=== PATIENT | female | born 1935 | race Caucasian/White ===

== ENCOUNTER 2016-08-22 10:29 | Inpatient (IN) | payer OTHER, MEDICARE ==
[~2016-08-22] VITALS: Ht 162.6 cm; Wt 55.3 kg
--- NOTE | 2016-08-22 11:09 | ED GENERAL ADULT ---
History of Present Illness General Chief Complaint: Fall Stated Complaint: FALL X COUPLE TIMES; NECKPAIN AND L HAND Source: patient Exam Limitations: confusion, poor historian Allergies Coded Allergies: amoxicillin (Intermediate, RASH 08/22/16) Sulfa (Sulfonamide Antibiotics) (SWELLING 08/22/16) erythromycin base (UNKNOWN 08/22/16) Triage Note: PT TO ED WITH FAMILY C/O BACK PAIN. PT HAS BEEN HAVING RECENT FALLS LATELY, UNSURE WHY SHE IS FALLING. PT LIVES WITH HER 98 YEAR OLD MOTHER. WAS SEEN AT [facility] ON [facility], HAD X-RAYS, NO FRACTURES WERE SEEN. PT WITH CONTINUED BACK BRITTON AND MORE FREQUENT FALLS. Triage Nurses Notes Reviewed? yes Onset: unsure - 3 days ago Duration: day(s): (3) Timing: unknown Injury Environment: home Severity: severe No Modifying Factors: none HPI: Patient is a 81-year-old female with history of heart murmur, cataracts hypertension and hyperlipidemia presenting to the emergency department with chief complaint of fall, confusion, weakness. She was brought in by her cousin' s via personal car. She reports that she found her on the bathroom floor this morning. She thinks that she may have fallen on Monday. Patient cannot tell me when she fell. She cannot tell me how she fell. She is unsure if she hit her head. Per family member patient usually takes care of her older 98-year -old mother at home alone. She has been driving without difficulty. She saw her primary care physician on August 16 for a preop evaluation prior to cataract surgery. Patient also reporting that over the past 4-5 days she's noticed weakness and numbness and tingling in the left upper extremity that's been progressive. Denies any trauma besides the fall recently. The fall happened after the onset of the left upper extremity weakness. Patient denying any chest pain or trouble breathing. Patient denying any abdominal pain. Denies any urinary incontinence or retention. (SU TARANGO,TEJA) Vital Signs & Intake/Output Vital Signs & Intake/Output Vital Signs Date Time Temp Pulse Resp B/P Pulse O2 O2 Flow FiO2 Ox Delivery Rate 08/22 1324 98.1 89 16 116/76 99 Room Air 08/22 1149 102 110/72 08/22 1102 76/52 08/22 1046 97.7 113 20 96 Room Air Past History Travel History Traveled to [place] past 21 day No Medical History Any Pertinent Medical History? see below for history Neurological: NONE EENT: NONE Cardiovascular: hypertension, hyperlipidemia Respiratory: NONE Gastrointestinal: NONE Hepatic: NONE Renal: NONE Musculoskeletal: NONE Psychiatric: NONE Endocrine: NONE Blood Disorders: NONE Cancer(s): breast cancer Surgical History Surgical History: none Psychosocial History What is your primary language Mongolian Tobacco Use: Quit >30 days ago ETOH Use: denies use Illicit Drug Use: denies illicit drug use Family History Hx Contributory? No (TEJA NAVARRO) Review of Systems Review of Systems Constitutional: Reports: see HPI, fever, weakness. Comments Review of systems: See HPI, All other systems negative. Constitutional, no chills fever or weight loss HEENT: No visual changes no sore throat no congestion Cardiovascular: No chest pain ,palpitation , orthopnea or ankle swelling Skin, no jaundice no rashes Respiratory: No dyspnea cough sputum or hemoptysis GI: No nausea no vomiting : No dysuria No hematuria Muscle skeletal: Positive neck and back pain Neurologic: Positive weakness, confusion and numbness and tingling Psych: No stress anxiety or depression,. Heme/endocrine: No bruising no bleeding no polyuria or polydipsia Immunology: No splenectomy or history of AIDS (TEJA NAVARRO) Physical Exam Physical Exam General Appearance: lethargic, thin Comments: Thin person who is minimally responsive HEENT: Normal EENT exam, extraocular motion intact, horizontal nystagmus present bilaterally, Pupils equally round and reactive to light and accommodation. Pupils are approximately 3 cm in size bilaterally. Nose is atraumatic. External auditory canal and Tympanic membranes clear. Pharynx normal. No swelling or edema. Neck: Supple, no lymphadenopathy, limited range of motion secondary to pain. Pain to palpation over C5, C6 and C7. No obvious deformity. No crepitus palpated. Back: Tender to palpation along the thoracic spine approximately T2, T3 and T4. Mild tenderness to palpation in the lumbar paraspinal region. Cardiovascular: Regular rate and rhythms , murmur appreciated, normal JVP Respiratory: Chest nontender. No respiratory distress.breath sounds clear to auscultation bilaterally Abdomen: Soft, nontender nondistended, no appreciable organomegaly. Normal bowel sounds. No ascites Extremity: No edema, no calf tenderness to palpation, normal and equal pulses. Profound weakness in all extremities on arrival. Unable to lift or grasp in the upper extremities. Unable to lift or move lower extremities actively. Neuro: Alert oriented x3, motor deficit of all extremities on arrival. Sensation intact in upper and lower extremities. Cranial nerves II through XII grossly intact. Skin: No appreciable rash on exposed skin, skin is warm and dry. Psych: Mood and affect is normal, poor memory Core Measures ACS in differential dx? Yes CVA/TIA Diagnosis: No Severe Sepsis Present: No Septic Shock Present: No (SU TARANGO,TEJA) Progress Differential Diagnoses I considered the following diagnoses in my evaluation of the patient: Rhabdomyolysis, cervical spine fracture, lumbar fracture Diagnostic Imaging: Viewed by Me: CT Scan. Discussed w/RAD: CT Scan. Radiology Impression: ATIENT: JOHANA JEAN-BAPTISTE PRESENT AGE: 81 PATIENT ACCOUNT NO: [id number] : 37 LOCATION: [facility] ORDERING PHYSICIAN: TEJA TARANGO SERVICE DATE: 08/22/16 EXAM TYPE: CAT - CT CERV SPINE WO IV CONTRAST; CT HEAD WO IV CONTRAST EXAMINATION: CT HEAD W/O IV CONTRAST CT CERVICAL SPINE W/O IV CONTRAST CLINICAL INFORMATION: Pain and confusion after fall. COMPARISON: None TECHNIQUE: Head - Contiguous axial imaging of the head was performed from the skull base to the vertex without the administration of intravenous contrast, and axial images reconstructed at 0.625 mm, 2.5 mm and 5 mm slice thickness. Cervical spine - Volumetric, helical CT acquisition of the cervical spine was obtained without contrast; in addition to the standard set of axial images, multiplanar reformatted images were provided in the coronal and sagittal imaging planes. DLP: 922 mGy-cm (total) FINDINGS: HEAD: Atherosclerotic calcification of cavernous carotid arteries. Findings suggestive of chronic, mild microangiopathy. No acute major vascular territorial infarction, hemorrhage, extra-axial fluid collection, focal mass effect or midline shift. Mild atrophy of cerebral hemispheres associated with symmetric prominence of ventricles and sulci. No acute findings within the posterior fossa. The calvarium is intact and the visualized paranasal sinuses, mastoid air cells and middle ear cavities are well aerated. No acute intraorbital pathology. CERVICAL SPINE: The occipital condyles, atlas, axis and atlantoaxial articulation are intact. There is degenerative subarticular spurring at the atlantodens joint. C2-C3 disc space is maintained. There is left-sided facet ankylosis at C2-C3. At C3-C4, there is moderate degenerative disc space narrowing and facet arthropathy with 0.2 cm degenerative anterolisthesis of C3 on C4. The left-sided uncovertebral joint hypertrophy produces moderate foraminal stenosis. At C4-C5, there is facet arthropathy, degenerative disc space narrowing, vacuum disc phenomenon and traction osteophyte formation. There is right-sided unilateral facet dislocation associated with 0.6 cm anterolisthesis of C4 on C5. There is a nondisplaced fracture in the left C5 vertebral body that extends anteroinferiorly into the vertebral body from the region of the uncovertebral joint, and small displaced fragment is seen at the anterosuperior corner of the vertebral body. Mild anterior height loss of the C5 vertebral body. Also, there appears to be a small, nondisplaced fracture of the superior articular process at the left C4-C5 facet. The C4-C5 uncovertebral joint and facet hypertrophy produce at least moderate left-sided foraminal stenosis at this level. At C5-C6 and C6-C7, there is severe degenerative disc space narrowing, vacuum disc phenomenon, endplate sclerosis, endplate cystic changes and osteophyte formation. The uncovertebral joint hypertrophy produces moderate bilateral foraminal stenosis. At C7-T1, there is mild degenerative disc space narrowing, vacuum disc phenomenon and facet arthropathy. There is a nondisplaced fracture of an osteophyte at the anterosuperior corner of T1. T1-T2 disc space is maintained. There is a transverse area of sclerosis from mild compression injury in the superior third of the T2 vertebral body. Also, there is mild concave compression fracture deformity involving the superior endplate of the partially visualized T3 vertebral body. IMPRESSION: 1. No acute intracranial pathology. 2. Multilevel degenerative disc disease, facet arthropathy and uncovertebral joint hypertrophy within the cervical spine. 3. C4 -C5 right-sided unilateral facet dislocation with 0.6 cm anterolisthesis of C4 on C5. A fracture present in the C5 vertebral body which exhibits mild anterior height loss. Also, a nondisplaced fracture is seen in the superior articular process at the left C4-C5 facet joint. 4. Nondisplaced fracture of an osteophyte at the anterosuperior corner of T1. 5. Mild compression injury within the superior third of the T2 vertebral body and mild compression fracture involving the superior endplate of the T3 vertebral body. The critical test result was discussed with Teja Luciano at 11:59 am and it was ascertained that the content and the importance of the findings was understood at the time of the direct communication. DICTATED BY: SIMON HARRINGTON MD DATE/TIME DICTATED:[address] DELIVERER:CRISTOBAL DATE/TIME TRANSCRIBED:08/22/161136 CONFIDENTIAL, DO NOT COPY WITHOUT APPROPRIATE AUTHORIZATION. <Electronically signed in Other Vendor System> SIGNED BY: SIMON HARRINGTON MD 08/22/16 1208 Initial ED EKG: sinus tachycardia (TEJA NAVARRO) Differential Diagnoses I considered the following diagnoses in my evaluation of the patient: Plan of Care: Orders Procedure Date/time Status LACTIC ACID 08/22 1408 Active Patient Data 08/22 1323 Active Add-on Test (ER Only) 08/22 1241 Active Add-on Test (ER Only) 08/22 1233 Active Add-on Test (ER Only) 08/22 1230 Active Singh, Insertion/Removal/Asses 08/22 1227 Active CULTURE,URINE 08/22 1140 Active URINE DRUGS OF ABUSE 08/22 1140 Complete ETHANOL 08/22 1110 Complete DIRECT BILIRUBIN 08/22 1110 Complete Telemetry/Flight Software Test Engineer 08/22 1108 Active BLOOD CULTURE 08/22 1108 Active URINALYSIS 08/22 1108 Complete TROPONIN LEVEL 08/22 1108 Complete LACTIC ACID 08/22 1108 Complete COMPREHENSIVE METABOLIC PANEL 08/22 1108 Complete CREATINE PHOSPHOKINASE 08/22 1108 Complete CBC WITHOUT DIFFERENTIAL 08/22 1108 Complete EKG 08/22 1103 Active Laboratory Tests 08/22/16 1140: Urine Opiates Screen < 100.00, Methadone Screen < 40, Barbiturate Screen < 60, Ur Phencyclidine Scrn < 6.00, Amphetamines Screen < 100, U Benzodiazepines Scrn < 85, Urine Cocaine Screen < 50, Urine Cannabis Screen < 5.00, Urine Color YEL, Urine Clarity HAZY H, Urine pH 6.0, Ur Specific [place] 1.015, Urine Protein 30 H, Urine Ketones TRACE H, Urine Nitrite NEG, Urine Bilirubin NEG@ICTO, Urine Urobilinogen 1.0, Ur Leukocyte Esterase NEG, Ur Microscopic SEDIMENT EXAMINED, Urine RBC 1-3, Urine WBC 3-5 H, Ur Epithelial Cells FEW, Urine Bacteria FEW H, Granular Casts PACKD H, Urine Hemoglobin NEG, Urine Glucose 100 H 08/22/16 1110: Anion Gap 15, Estimated GFR > 60, BUN/Creatinine Ratio 47.5 H, Glucose 189 H, Lactic Acid 5.3 H, Calcium 9.6, Total Bilirubin 2.1 H, Direct Bilirubin 0.3, AST 64 H, ALT 58 H, Alkaline Phosphatase 56, Creatine Kinase 603 H, Troponin I 0.27 *H, Total Protein 6.5, Albumin 3.5, Globulin 3.0, Albumin/Globulin Ratio 1.2, CBC w Diff MAN DIFF ORDERED, RBC 4.28, MCV 93.1, MCH 31.3 H, RDW 13.2, MPV 7.9, Gran % 88.4 H, Lymphocytes % 4.2 L, Monocytes % 7.3, Eosinophils % 0, Basophils % 0.1, Absolute Granulocytes 9.8 H, Absolute Lymphocytes 0.5 L, Absolute Monocytes 0.8 H, Absolute Eosinophils 0, Absolute Basophils 0, Platelet Estimate ADEQUATE, Normocytic RBCs VERIFIED, Normochromic RBCs VERIFIED , PUBS MCHC 33.6, Serum Alcohol < 10.0 Microbiology 08/22 1227 URINE ROUT: Urine Culture - CAN Cancelled: Cancelled via OE: CAN BE ADDED ON 08/22 1140 URINE ROUT: Urine Culture - RECD 08/22 1140 URINE ROUT: Urine Culture - CAN Cancelled: ERROR 08/22 1130 BLOOD: Blood Culture - RECD 08/22 1110 BLOOD: Blood Culture - RECD Comments: 08/22/2016 12:54:06 PM D/W DR MEDINA, who reviewed patient's CT. he AGREES WITH HARD CERVICAL COLLAR AND CONSULT DR OCHOA. He will evaluate the patient himself to as PT WILL NEED ELECTIVE SURGERY PERHAPS LATER. I have notified Dr. Medina of the patient's weakness of the left upper extremity and other pertinent history/physical exam findings. 08/22/2016 1:11:51 PM patient's case discussed with Dr. Chase and Dr. Hernandez. Dr. Hernandez feels the patient can be admitted to telemetry. (ED MCMAHON,VLAD Moore) Departure Departure Time of Disposition: 1330 Condition: Stable Clinical Impression Primary Impression: Cervical spine fracture Qualifiers: Encounter type: initial encounter Cervical vertebra fracture level: C5 Fracture type: closed Fracture morphology: unspecified fracture morphology Fracture alignment: nondisplaced Qualified Code: S12.401A - Unspecified nondisplaced fracture of fifth cervical vertebra, initial encounter for closed fracture Secondary Impressions: Elevated BUN Elevated troponin Rhabdomyolysis Qualifiers: Rhabdomyolysis type: traumatic Encounter type: initial encounter Qualified Code: T79.6XXA - Traumatic ischemia of muscle, initial encounter Referrals: Wendy ULCAS MD (PCP/Family) Departure Forms: Customer Survey General Discharge Information (TEJA NAVARRO) Departure Disposition: STILL A PATIENT Admission Note Spoke With: AUGUSTINA MCMAHON,KYLIE Blanc Documentation of Exam: Documentation of any treatments & extenuating circumstances including Concerns Regarding Discharge (functional status, medication knowledge or non-compliance, living conditions, etc.) that warrant an admission rather than observation: Patient has an elevated troponin level of an unclear etiology. This could represent a recent heart attack or demand ischemia. This places the patient at high risk of dysrhythmia, hypotension, chest pain shortness of breath and syncope. She requires continuous cardiac monitoring and serial troponin determinations along with cardiology consultation. In addition the patient has suffered a fall with a cervical spine fracture that requires a hard cervical collar and consultations with neurosurgery and orthopedic/back surgery. She also has profound weakness of the left upper extremity that compromises her functional capacity, she should also be evaluated by physical therapy. The patient has baseline confusion and this along with the above make her extremely poor candidate for outpatient management. I feel she would not be able to comply with outpatient treatment would likely return in worse clinical condition. Given this patient's advanced age and multiple medical comorbidities her treatment and recovery will likely be prolonged and complicated, requiring a multi-day hospitalization. PA/SWATCH CHECKER Co-Sign Statement Statement: ED Attending supervision documentation- [X] I saw and evaluated the patient. I have also reviewed all the pertinent lab results and diagnostic results. I agree with the findings and the plan of care as documented in the PA's/SWATCH CHECKER's documentation. It appears patient has fallen at some point perhaps today or prior. She is a poor historian and cannot provide substantial details of her injury. She does have a profound weakness of the left upper extremity on examination. She is currently in a cervical collar. [] I have reviewed the ED Record and agree with the PA's/SWATCH CHECKER's documentation. [] Additions or exceptions (if any) to the PAs/SWATCH CHECKER's note and plan are summarized below: [] (ED MCMAHON,VLAD Moore) Critical Care Note Critical Care Note Critical Care Time: 30-74 min (VLAD WARD MD)
[2016-08-22 11:29] LABS: ABSOLUTE BASOPHIL COUNT 0 /CUMM (0.0-0.2); ABSOLUTE EOSINOPHIL COUNT 0 /CUMM (0.0-0.7); ABSOLUTE GRANULOCYTE CT 9.8 /CUMM (1.4-6.5); ABSOLUTE LYMPH COUNT 0.5 /CUMM (1.2-3.4); ABSOLUTE MONOCYTE COUNT 0.8 /CUMM (0.10-0.60); BASOPHIL % 0.1 % (0.0-2.0); EOSINOPHIL % 0 % (0-5); GRANULOCYTE % 88.4 % (42.2-75.2); HEMATOCRIT 39.8 % (37-47); MEAN CORPUSCULAR HGB 31.3 PG (27.0-31.0); MEAN CORPUSCULAR HGB CONC 33.6 G/DL (33.0-37.0); MEAN CORPUSCULAR VOLUME 93.1 FL (81.0-99.0); MEAN PLATELET VOLUME 7.9 FL (7.4-10.4); PLATELET COUNT 222 /CUMM (130-400); RBC DISTRIBUTION WIDTH 13.2 % (11.5-14.5); RED BLOOD CELL CT 4.28 /CUMM (4.20-5.40)
--- NOTE | 2016-08-22 12:08 | CT SCAN REPORT ---
EXAMINATION: CT HEAD W/O IV CONTRAST CT CERVICAL SPINE W/O IV CONTRAST CLINICAL INFORMATION: Pain and confusion after fall. COMPARISON: None TECHNIQUE: Head - Contiguous axial imaging of the head was performed from the skull base to the vertex without the administration of intravenous contrast, and axial images reconstructed at 0.625 mm, 2.5 mm and 5 mm slice thickness. Cervical spine - Volumetric, helical CT acquisition of the cervical spine was obtained without contrast; in addition to the standard set of axial images, multiplanar reformatted images were provided in the coronal and sagittal imaging planes. DLP: 922 mGy-cm (total) FINDINGS: HEAD: Atherosclerotic calcification of cavernous carotid arteries. Findings suggestive of chronic, mild microangiopathy. No acute major vascular territorial infarction, hemorrhage, extra-axial fluid collection, focal mass effect or midline shift. Mild atrophy of cerebral hemispheres associated with symmetric prominence of ventricles and sulci. No acute findings within the posterior fossa. The calvarium is intact and the visualized paranasal sinuses, mastoid air cells and middle ear cavities are well aerated. No acute intraorbital pathology. CERVICAL SPINE: The occipital condyles, atlas, axis and atlantoaxial articulation are intact. There is degenerative subarticular spurring at the atlantodens joint. C2-C3 disc space is maintained. There is left-sided facet ankylosis at C2-C3. At C3-C4, there is moderate degenerative disc space narrowing and facet arthropathy with 0.2 cm degenerative anterolisthesis of C3 on C4. The left-sided uncovertebral joint hypertrophy produces moderate foraminal stenosis. At C4-C5, there is facet arthropathy, degenerative disc space narrowing, vacuum disc phenomenon and traction osteophyte formation. There is right-sided unilateral facet dislocation associated with 0.6 cm anterolisthesis of C4 on C5. There is a nondisplaced fracture in the left C5 vertebral body that extends anteroinferiorly into the vertebral body from the region of the uncovertebral joint, and small displaced fragment is seen at the anterosuperior corner of the vertebral body. Mild anterior height loss of the C5 vertebral body. Also, there appears to be a small, nondisplaced fracture of the superior articular process at the left C4-C5 facet. The C4-C5 uncovertebral joint and facet hypertrophy produce at least moderate left-sided foraminal stenosis at this level. At C5-C6 and C6-C7, there is severe degenerative disc space narrowing, vacuum disc phenomenon, endplate sclerosis, endplate cystic changes and osteophyte formation. The uncovertebral joint hypertrophy produces moderate bilateral foraminal stenosis. At C7-T1, there is mild degenerative disc space narrowing, vacuum disc phenomenon and facet arthropathy. There is a nondisplaced fracture of an osteophyte at the anterosuperior corner of T1. T1-T2 disc space is maintained. There is a transverse area of sclerosis from mild compression injury in the superior third of the T2 vertebral body. Also, there is mild concave compression fracture deformity involving the superior endplate of the partially visualized T3 vertebral body. IMPRESSION: 1. No acute intracranial pathology. 2. Multilevel degenerative disc disease, facet arthropathy and uncovertebral joint hypertrophy within the cervical spine. 3. C4-C5 right-sided unilateral facet dislocation with 0.6 cm anterolisthesis of C4 on C5. A fracture present in the C5 vertebral body which exhibits mild anterior height loss. Also, a nondisplaced fracture is seen in the superior articular process at the left C4-C5 facet joint. 4. Nondisplaced fracture of an osteophyte at the anterosuperior corner of T1. 5. Mild compression injury within the superior third of the T2 vertebral body and mild compression fracture involving the superior endplate of the T3 vertebral body. The critical test result was discussed with Magi Luciano at 11:59 am and it was ascertained that the content and the importance of the findings was understood at the time of the direct communication.
--- NOTE | 2016-08-22 12:13 | RADIOLOGY REPORT ---
EXAMINATION: XR PORTABLE CHEST CLINICAL INFORMATION: Syncope COMPARISON: 05/11/2015 TECHNIQUE: Portable AP view of the chest was obtained. FINDINGS: The lungs are well expanded. No consolidation, edema, or effusion. No pneumothorax. The cardiomediastinal silhouette is unchanged. Mild compression deformities of the T2 and T3 vertebral bodies seen on the prior cervical spine CT are not visualized on this study. IMPRESSION: No acute pulmonary findings.
--- NOTE | 2016-08-22 13:34 | Cons- Cardiology ---
General Information and HPI Consulting Request Date of Consult: 08/22/16 Requested By: Suraj TARANGO Reason for Consult: Fall; Possible LOC; Elevated troponin Source of Information: patient, old records History of Present Illness: Ms De Paz is a 81 yr old woman who was known to be in her usual state of health until a few weeks ago. She has a past medical history of hypertension, hyperlipidemia. She was brought to [facility] with a chief concern of neck pain, left arm weakness, multiple falls 2 weeks. As per the patient, she had multiple falls in the last 2 weeks, resulting injury to knees with no loss of consciousness, seizures or head injury. Reported staying on the floor for longer duration secondary to inability to pull herself up. Last fall was this a.m., unwitnessed, with no head injury. Does not report any lightheadedness or dizziness prior to or after the fall. Attributes weakness in lower extremities that resulted in these falls. Approximately 2 weeks ago, started complaining of weakness and left upper extremity, with inability to pick and shovel man or lift any objects. Reported occassional neck pain, 10/10 severity w/ no radiation. No tingling or numbness sensation, loss of sensation in bilateral upper or lower extremities. No loss of bladder or bowel function. Reports decrease in visual acuity secondary to cataract. Reported occassional chest discomfort, Allergies/Medications Allergies: Coded Allergies: amoxicillin (Intermediate, RASH 08/22/16) Sulfa (Sulfonamide Antibiotics) (SWELLING 08/22/16) erythromycin base (UNKNOWN 08/22/16) Home Med List: Amlodipine Besylate 5 MG TABLET 1 TAB PO DAILY HEART/BP (Reported) Lisinopril 20 MG TABLET 1 TAB PO DAILY HEART/BP (Reported) Current Medications: Current Medications Sig/Gisela Start time Last Medication Dose Route Stop Time Status Admin Ceftriaxone Sodium 1,000 MG ONCE ONE 08/22 1315 DC 08/22 IV 08/22 1316 1324 Ceftriaxone Sodium 0 .STK-MED ONE 08/22 1314 DC .ROUTE Potassium Chloride 10 MEQ ONCE ONE 08/22 1300 DC 08/22 IV 08/22 1301 1324 Sodium Chloride 1,000 ML BOLUS ONE 08/22 1145 AC 08/22 IV 08/22 1344 1149 Sodium Chloride 1,000 ML BOLUS ONE 08/22 1115 DC 08/22 IV 08/22 1214 1120 Past History Travel History Traveled to [place] past 21 day No Medical History Neurological: NONE EENT: NONE Cardiovascular: hypertension, hyperlipidemia Respiratory: NONE Gastrointestinal: NONE Hepatic: NONE Renal: NONE Musculoskeletal: NONE Psychiatric: NONE Endocrine: NONE Blood Disorders: NONE Cancer(s): breast cancer Surgical History Surgical History: 1 Psychosocial History ETOH Use: denies use Illicit Drug Use: denies illicit drug use Exam & Diagnostic Data Vital Signs and I&O Vital Signs Date Time Temp Pulse Resp B/P Pulse O2 O2 Flow FiO2 Ox Delivery Rate 08/22 1324 98.1 89 16 116/76 99 Room Air 08/22 1149 102 110/72 08/22 1102 76/52 08/22 1046 97.7 113 20 96 Room Air Intake & Output 08/22 1600 08/22 0800 08/22 0000 08/21 1600 08/21 0808/21 0000 Intake Total 1000 Output Total Balance 1000 Intake, IV 1000 Patient 122 lb Weight Labs/[place] Results: Laboratory Tests 08/22 08/22 1140 1110 Chemistry Sodium (137 - 145 mmol/L) 139 Potassium (3.5 - 5.1 mmol/L) 3.0 L Chloride (98 - 107 mmol/L) 103 Carbon Dioxide (22 - 30 mmol/L) 21 L Anion Gap (5 - 16) 15 BUN (7 - 17 mg/dL) 38 H Creatinine (0.5 - 1.0 mg/dL) 0.8 Estimated GFR (>60 ml/min) > 60 BUN/Creatinine Ratio (7 - 25 %) 47.5 H Glucose (65 - 99 mg/dL) 189 H Lactic Acid (0.7 - 2.1 mmol/L) 5.3 H Calcium (8.4 - 10.2 mg/dL) 9.6 Total Bilirubin (0.2 - 1.3 mg/dL) 2.1 H Direct Bilirubin (< 0.4 mg/dL) 0.3 AST (14 - 36 U/L) 64 H ALT (9 - 52 U/L) 58 H Alkaline Phosphatase (<127 U/L) 56 Creatine Kinase (30 - 135 U/L) 603 H Troponin I (< 0.11 ng/ml) 0.27 *H Total Protein (6.3 - 8.2 g/dL) 6.5 Albumin (3.5 - 5.0 g/dL) 3.5 Globulin (1.9 - 4.2 gm/dL) 3.0 Albumin/Globulin Ratio (1.1 - 2.2 %) 1.2 Hematology CBC w Diff MAN DIFF ORDERED WBC (4.8 - 10.8 /CUMM) 11.0 H RBC (4.20 - 5.40 /CUMM) 4.28 Hgb (12.0 - 16.0 G/DL) 13.4 Hct (37 - 47 %) 39.8 MCV (81.0 - 99.0 FL) 93.1 MCH (27.0 - 31.0 PG) 31.3 H RDW (11.5 - 14.5 %) 13.2 Plt Count (130 - 400 /CUMM) 222 MPV (7.4 - 10.4 FL) 7.9 Gran % (42.2 - 75.2 %) 88.4 H Lymphocytes % (20.5 - 51.1 %) 4.2 L Monocytes % (1.7 - 9.3 %) 7.3 Eosinophils % (0 - 5 %) 0 Basophils % (0.0 - 2.0 %) 0.1 Absolute Granulocytes (1.4 - 6.5 /CUMM) 9.8 H Absolute Lymphocytes (1.2 - 3.4 /CUMM) 0.5 L Absolute Monocytes (0.10 - 0.60 /CUMM) 0.8 H Absolute Eosinophils (0.0 - 0.7 /CUMM) 0 Absolute Basophils (0.0 - 0.2 /CUMM) 0 Platelet Estimate (ADEQUATE) ADEQUATE Normocytic RBCs VERIFIED Normochromic RBCs VERIFIED PUBS MCHC (33.0 - 37.0 G/DL) 33.6 Toxicology Urine Opiates Screen (>2000 NG/ML) < 100.00 Methadone Screen (>300 NG/ML) < 40 Barbiturate Screen (>200 NG/ML) < 60 Ur Phencyclidine Scrn (>25 NG/ML) < 6.00 Amphetamines Screen (>1000 NG/ML) < 100 U Benzodiazepines Scrn (>200 NG/ML) < 85 Urine Cocaine Screen (>300 NG/ML) < 50 Urine Cannabis Screen (>50 NG/ML) < 5.00 Serum Alcohol (<10 MG/DL) < 10.0 Urines Urine Color (YEL,AMB,STR) YEL Urine Clarity (CLEAR) HAZY H Urine pH (5.0 - 8.0) 6.0 Ur Specific [place] (1.001 - 1.035) 1.015 Urine Protein (NEG,<30 MG/DL) 30 H Urine Ketones (NEG) TRACE H Urine Nitrite (NEG) NEG Urine Bilirubin (NEG) NEG@ICTO Urine Urobilinogen (0.1 - 1.0 EU/dl) 1.0 Ur Leukocyte Esterase (NEG) NEG Ur Microscopic SEDIMENT EXAMINED Urine RBC (0 - 5 /HPF) 1-3 Urine WBC (0 - 2 /HPF) 3-5 H Ur Epithelial Cells (NONE,FEW) FEW Urine Bacteria (NEG/NONE) FEW H Granular Casts (NONE /LPF) PACKD H Urine Hemoglobin (NEG) NEG Urine Glucose (N MG/DL) 100 H Diagnostic Data CXR Results FINDINGS: The lungs are well expanded. No consolidation, edema, or effusion. No pneumothorax. The cardiomediastinal silhouette is unchanged. Mild compression deformities of the T2 and T3 vertebral bodies seen on the prior cervical spine CT are not visualized on this study. IMPRESSION: No acute pulmonary findings. Other Results CT head and C spine: IMPRESSION: 1. No acute intracranial pathology. 2. Multilevel degenerative disc disease, facet arthropathy and uncovertebral joint hypertrophy within the cervical spine. 3. C4-C5 right-sided unilateral facet dislocation with 0.6 cm anterolisthesis of C4 on C5. A fracture present in the C5 vertebral body which exhibits mild anterior height loss. Also, a nondisplaced fracture is seen in the superior articular process at the left C4-C5 facet joint. 4. Nondisplaced fracture of an osteophyte at the anterosuperior corner of T1. 5. Mild compression injury within the superior third of the T2 vertebral body and mild compression fracture involving the superior endplate of the T3 vertebral body. Assessment/Plan Assessment/Plan Assessment: 1. Multiple falls; ? LOC 2. C Spine fracture 3. Elevated troponin - likely related to rhabdo; further evaluation to rule out underlying ischemia 4. Rhabdomyolysis 5. Transaminitis / elevated total bili 6. Hypokalemia 7. History of HTN 8. History of HLD Recommendations: - Telemetry admission. - Echocardiogram - Serial troponins and ECGs - Check orthostatic heart rate and BP qshift x 3 - Check TSH; B12, etc. - Recheck CBC to reassess for elevated WBC - Neurosurgery input pending - Replete potassium and check Mg2+ and replete if necessary Consult Acknowledgment - Thank you for your consult request.
--- NOTE | 2016-08-22 14:54 | History & Physical ---
See Addendum LESLIE CHEN 08/22/16 1453: General Information and HPI MD Statement: I have seen and personally examined JOHANA DE PAZ and documented this H&P. The patient is a 81 year old F who presented with a patient stated chief complaint of Source of Information: patient, old records History of Present Illness: Ms De Paz is a 81 yr old woman who was known to be in her usual state of health until a few weeks ago. She has a past medical history of hypertension, hyperlipidemia. She was brought to [facility] with a chief concern of neck pain, left arm weakness, multiple falls 2 weeks. As per the patient, she had multiple falls in the last 2 weeks, resulting injury to knees with no loss of consciousness, seizures or head injury. Reported staying on the floor for longer duration secondary to inability to pull herself up. Last fall was this a.m., unwitnessed, with no head injury. Does not report any lightheadedness or dizziness prior to or after the fall. Attributes weakness in lower extremities that resulted in these falls. Approximately 2 weeks ago, started complaining of weakness and left upper extremity, with inability to clam picker or lift any objects. Reported occassional neck pain, 10/10 severity w/ no radiation. No tingling or numbness sensation, loss of sensation in bilateral upper or lower extremities. No loss of bladder or bowel function. Reports decrease in visual acuity secondary to cataract. Reported occassional chest discomfort, located in the center of the chest, w/ no radiation and association w/ food intake. No palpitations, no orthopnea, no SOB, no PND. Sees the primary care physician regularly, and was seen by Dr. Watesr a few days ago for a preoperative clearance for cataract surgery. Allergies/Medications Allergies: Coded Allergies: amoxicillin (Intermediate, RASH 08/22/16) Sulfa (Sulfonamide Antibiotics) (SWELLING 08/22/16) erythromycin base (UNKNOWN 08/22/16) Home Med list Amlodipine Besylate 5 MG TABLET 1 TAB PO DAILY HEART/BP (Reported) Lisinopril 20 MG TABLET 1 TAB PO DAILY HEART/BP (Reported) Past History Travel History Traveled to [place] past 21 day No Medical History Neurological: NONE EENT: NONE Cardiovascular: hypertension, hyperlipidemia Respiratory: NONE Gastrointestinal: NONE Hepatic: NONE Renal: NONE Musculoskeletal: NONE Psychiatric: NONE Endocrine: NONE Blood Disorders: NONE Surgical History Surgical History: none Past Family/Social History Family History Relations & Conditions if any FATHER (Diabetes). Psychosocial History ETOH Use: denies use Illicit Drug Use: denies illicit drug use Functional Ability ADLs Independent: dressing, eating, toileting, bathing. Ambulation: independent IADLs Independent: shopping, housework, finances, food prep, telephone, transportation , medication admin. Review of Systems Review of Systems Constitutional: Reports: see HPI. EENTM: Reports: visual changes. Cardiovascular: Reports: chest pain. Respiratory: Denies: cough. GI: Denies: abdominal pain. Genitourinary: Denies: dysuria. Musculoskeletal: Denies: back pain. Skin: Denies: change in skin color. Neurological/Psychological: Denies: anxiety, depressed. Hematologic/Endocrine: Denies: bruising. Exam & Diagnostic Data Last 24 Hrs of Vital Signs/I&O Vital Signs Date Time Temp Pulse Resp B/P Pulse O2 O2 Flow FiO2 Ox Delivery Rate 08/22 1621 98.0 97 18 130/68 99 Room Air 08/22 1324 98.1 89 16 116/76 99 Room Air 08/22 1149 102 110/72 08/22 1102 76/52 08/22 1046 97.7 113 20 96 Room Air Intake & Output 08/22 1600 08/22 0800 08/22 0000 Intake Total 2200 Output Total 30 Balance 2170 Intake, IV 2200 Output, Urine 30 Patient 122 lb Weight Physical Exam General Appearance Alert, Oriented X3, Cooperative, No Acute Distress Skin No Rashes, No Breakdown, erythema b/l knees HEENT Atraumatic, PERRLA, EOMI, horizontal nystagmus Neck No JVD, limited neck examination Lymphatic Cervical nl Cardiovascular Regular Rate, Normal S1, Normal S2 Lungs Clear to Auscultation, Normal Air Movement Abdomen Normal Bowel Sounds, Soft, No Tenderness Neurological Normal Gait, Normal Speech, Normal Tone, Sensation Intact, Reflexes 2+, limited cranial nerve exam left upper extremity 2/5 strenght right upper and lower extremity 5/5 sensatoin intact b/l lower extremities Extremities No Clubbing, No Cyanosis, No Edema, Normal Pulses Vascular Pulses Symmetrical Body Front and Back (Adult) 1) erythema on knees Diagnostic Data CXR Results FINDINGS: The lungs are well expanded. No consolidation, edema, or effusion. No pneumothorax. The cardiomediastinal silhouette is unchanged. Mild compression deformities of the T2 and T3 vertebral bodies seen on the prior cervical spine CT are not visualized on this study. IMPRESSION: No acute pulmonary findings. Other Results CT head and C spine: IMPRESSION: 1. No acute intracranial pathology. 2. Multilevel degenerative disc disease, facet arthropathy and uncovertebral joint hypertrophy within the cervical spine. 3. C4-C5 right-sided unilateral facet dislocation with 0.6 cm anterolisthesis of C4 on C5. A fracture present in the C5 vertebral body which exhibits mild anterior height loss. Also, a nondisplaced fracture is seen in the superior articular process at the left C4-C5 facet joint. 4. Nondisplaced fracture of an osteophyte at the anterosuperior corner of T1. 5. Mild compression injury within the superior third of the T2 vertebral body and mild compression fracture involving the superior endplate of the T3 vertebral body. Assessment/Plan Assessment: Ms De Paz is a 81 yr old woman has a past medical history of hypertension, hyperlipidemia is evaluated for neck pain, left arm weakness, multiple falls 2 weeks. As per the patient's family, she had multiple falls in the last 2 weeks, frequency of which worsened in the last few days. Worsening left arm weakness in the last 2 days. At the time of admission, temperature 97.7, pulse rate 113, blood pressure 110/ 72, 96% on room air. Neurological examination revealed motor weakness on the left upper extremity, with 1+ biceps, brachial radialis and triceps reflexes on the left side. Lab findings indicated leukocytosis WBC 11.0, hemoglobin 13.4, hematocrit 39.8, platelets 222. EKG revealed normal sinus rhythm, no ST-T wave inversions. Electrolytes-sodium 139, potassium 3.0 (replenished), bicarbonate 21, BUN 38, serum creatinine 0.8, glucose 189, lactic acid 5.3 (decreased to 1.1 after fluid resuscitation), magnesium 1.8, total bilirubin 2.1, AST 64, ALT 58, alkaline phosphatase 56, creatinine kinase 603, serial cardiac enzymes-troponin I 0.27--> 0.23. Urine toxicology was negative for opiates and barbiturates. Urinalysis revealed W BC 3-5, urine leukocyte esterase negative, urine nitrite negative. CT head-did not show any acute intracranial pathology. CT cervical spine revealed C4-C5 right-sided unilateral facet dislocation with 0.6 cm anterolisthesis of C4 on C5. A fracture present in the C5 vertebral body which exhibits mild anterior height loss. Also, a nondisplaced fracture is seen in the superior articular process at the left C4-C5 facet joint. MRI was not done. Admission diagnosis: #1 elevated cardiac enzymes #3 cervical myelopathy #4 cervical spine fracture #5 rhabdomyolysis Below is the problem list and plan: #1 elevated cardiac enzymes-likely due to supply demand mismatch type II ME. Serial echocardiogram grams did not reveal any ST-T wave changes. Serial cardiac enzymes trended down. Patient did not have any cardiac symptoms, at the time of admission. Blood pressure was stable. She was to be be monitored on cardiac floor to check for any possible arrhythmias that could have resulted in multiple falls. Team Assembler-Dr. Hernandez was consulted for advice. Echocardiogram. No antiplatelet drugs to be administered at this time, and if found to have any EKG changes, consider aspirin. #2 possible cervical myelopahty-considering the odd presentation of motor symptoms discordant to bony findings alone, a cord compression was considered in the differential. She was continued on neck brace. The patient did not have any neck pain. An MRI could not be done. Dr. Kaden Hale MD , neurosurgeon was consulted for advice. No steroids were administered at this time. #3 abnormal electrolytes and rhabdomyolysis-hypokalemia. Electrolytes replenished appropriately, and was continued on intravenous fluids. #4 hypertension-continued on home dose of lisinopril and amlodipine. #5 DVT prophylaxis- alps As Ranked By This Provider Problem List: 1. Rhabdomyolysis Qualifiers Rhabdomyolysis type: traumatic Encounter type: initial encounter Qualified Code : T79.6XXA - Traumatic ischemia of muscle, initial encounter 2. Elevated BUN 3. Elevated troponin 4. Cervical spine fracture Qualifiers Encounter type: initial encounter Cervical vertebra fracture level: C5 Fracture type: closed Fracture morphology: unspecified fracture morphology Fracture alignment: nondisplaced Qualified Code: S12.401A - Unspecified nondisplaced fracture of fifth cervical vertebra, initial encounter for closed fracture Core Measures/Miscellaneous Acute Coronary Syndrome ACS Diagnosis: No Cerebrovascular Accident CVA/TIA Diagnosis: No Congestive Heart Failure CHF Diagnosis: No Venous Thromboembolism VTE Risk Factors: Acute medical illness, Age > 40 No Mech VTE prophylaxis d/t: No contraindications No VTE Pharm Prophylaxis d/t: No contraindications VTE Diagnosis: No VTE Type: NONE VTE Confirmed by (Test): NONE Severe Sepsis Severe Sepsis Present: No Septic Shock Septic Shock Present: No Miscellaneous Documentation Attending Case Discussed With: KYLIE JACKMAN MD Primary Care Physician: Wendy WATERS MD [facility] Level of Patient Care: Telemetry REED COSME 08/22/166: Resident Review Statement Resident Statement: examined this patient, discussed with fashion buying internship, agreed with fashion buying internship, reviewed EMR data (avail), reviewed images Other Findings: Mrs. De Paz is a 81-year-old female with significant past medical history of hypertension, hyperlipidemia, and bloody nipple discharge [status post bilateral mastectomy, patient states she was never diagnosed with cancer, ?prophylactic mastectomy] who presents to the hospital emergency department for evaluation after a fall. Per the patient, she said that her family [on-call and cousin] suggested that she come to the emergency department after they found that she was slightly altered. She states that she fell this morning and was down for approximately 3 hours. 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 She states that over the last few months she has had multiple falls and usually remains down for quite a while as she has developed left arm weakness as well as left leg paresthesias which are inhibiting her ability to get up in an efficient /timely manner. Upon presentation, vitals were temperature 97.7, heart rate 113, respiratory rate 20, saturating 96% on room air. Physical exam revealed an age-appropriate appearing female lying comfortably in bed in no acute distress with hard cervical collar in place. HEENT exam was negative for any gross signs of trauma however per the ED note she did have midline cervical spine tenderness. Eye exam did show horizontal left-sided nystagmus [rapid phase to the left, slow to the right]. Auscultation of the right carotid artery revealed systolic murmur [ questionable radiation from the heart], the left could not be auscultated due to the c-collar. Heart exam S1-S2 positive with 3/6 systolic murmur, louder at the base of the heart. Posterior lung ervin could not be examined. Abdominal exam benign. Extremity exam significant for left arm 1 out of 5 strength, with diminished furniture manager strength compared to the right. Right arm 3 out of 5 strength. RLE and LLE 4/5 strength. Sensation in tact bilaterally in both upper and lower extremities. Cranial nerves grossly intact, but spinal accessory nerve could not be assessed due to c-collar. Reflexes equal and 2+ bilaterally in upper and lower extremities [radial, bicep, and patellar] EKG showed sinus tachycardia at 101 with CO interval 176, QTC 493. There was left axis deviation approximately -30 a Q wave in V1 and V2. No significant ST elevations were noted. Significant labs hemoglobin/hematocrit within normal limits, white blood cell count 11.0, sodium 139, potassium 3.0, BUNs/creatinine 38/0.8. Glucose 189. Lactic acid 5.3. Troponin I 0.27. Chest x-ray revealed no acute pathology. CT of the head and neck ruled out any intracranial bleed but did reveal facet arthropathy at C4 and C5 with a right facet dislocation with 0.6 cm of anterolisthesis of C4 on C5, as well as C5 compression fracture with anterior height loss, as well as nondisplaced fracture of the superior articular processes of C4, as well as a T1 allegra superior osteophyte fracture as well as a T2 superior mild compression fracture. Problem list/assessment and plan Elevated troponin without significant EKG changes * No chest pain, and without SAKINA, but in light of her troponins, we will admit to telemetry and trend trops w seriel EKGs at 1700 and 2300. Vertebral fractures * Continue c-spine stabilization with a hard collar * neurosurgery and ortho surgery consults placed and appreciated * Most likely she will require an MRI to further elucidate her presentation as she does have bony involvement. MRI would be helpful to evaluate if she does have any spinal involvement or compression. * Spinal compression, please consult the neurosurgery staff and consider IV steroids. * We will also consider consulting interventional radiology tomorrow given her compression fracture for pain relief if cleared by neuro and ortho. Fall versus syncope * ? Unsure if the patient had a mechanical fall versus arrhythmia versus neurogenic syncope, versus neuropathy versus questionable seizure as well. The patient does state that she falls frequently and remembers these episodes or seizure activities less likely however. * We will rule her out for cardiovascular causes with telemetry monitoring as well as an echocardiogram, and bilateral carotid artery ultrasounds. * We will also get B12 and B9 levels - MCV 90+. * If no etiology is found, we will consider an EEG and neuro evaluation Rhabdomyolysis * Most likely secondary to being down for 3 hours, no renal impairment at the moment. * We will trend creatinine kinase as well as her BUN/creatinine. * Patient was given 2 L of normal saline bolus in the emergency department. Hypokalemia * repleted in the ED * We will add on magnesium as if she has hypomagnesemia, repletion of potassium will be inconsequential. * If Mg is WNL, we will replete with another 20meQ and consider PO repletion as well DNR/DNI Heart healthy diet pain pathway as ordered ALPS for now
[2016-08-22] MEDS ORDERED: AMLODIPINE BESYL5 M1 PO (15:15)
[2016-08-22] MEDS ORDERED: LISINOPRIL20 M1 PO (15:15)
--- NOTE | 2016-08-22 15:26 | PN- Student ---
Subjective Subjective: ID: Ms. De Paz is a 81 yo white F w/ a past medical history of HTN, Hyperlipidemia, and breast cancer. CC: Ms. De Paz is being admitted today because of weakness and tingling of LUE, neck and left hand pain, and frequent falls. Source: patient HPI: Ms. De Paz is coming in with complaints of weakness/loss of function of left upper extremity that has worsened over the last 4-5 days. She describes the weakness as constant with no sensory changes. She does not remember exactly when the weakness began but says that it started prior to when she started falling. She states that she started falling around 2-3 weeks ago, with the most recent fall occurring this morning from which she wasnt able to get up. She was found by family on her bathroom floor. She has been using a walker as of late. She does not report and LOC or loss of bladder/bowel control during these falls but does say that she remains on the ground for extended periods of time following them. She says that her legs do not feel the same weakness as her LUE but she says that her feet feel unstable when she stands. She does not report any recent illness however she says that she hasnt felt well recently. She reports not eating well and only consuming cranberry juice. Allergies: sulfonamides, erythromycin, amoxicillin Medication: Reported- Lisinopril 20mg, amlodipine 5mg, Advil (occaisionally) Current Medications Sig/Gisela Start time Last Medication Dose Route Stop Time Status Admin Ceftriaxone Sodium 1,000 MG ONCE ONE 08/22 1315 DC 08/22 IV 08/22 1316 1324 Ceftriaxone Sodium 0 .STK-MED ONE 08/22 1314 DC .ROUTE Potassium Chloride 10 MEQ ONCE ONE 08/22 1300 DC 08/22 IV 08/22 1301 1324 Sodium Chloride 1,000 ML BOLUS ONE 08/22 1145 AC 08/22 IV 08/22 1344 1149 Sodium Chloride 1,000 ML BOLUS ONE 08/22 1115 DC 08/22 IV 08/22 1214 1120 PMH: Ms. De Paz has a past medical history of cataracts, systolic heart murmur, hyperlipidemia, HTN, and breast cancer Surgical hx: bilateral subcutaneous mastectomy to remove breast cancer FH: Father passed from CVD, Cousin had DM SH: Patient stated that she quit smoking 30 years ago. She also stated ETOH use frequency as "now and then". ROS: She stated that she had a 30 lb weight loss 2 years ago that she never regained. She also reported some GI symptoms of constipation at times and episodes of stomach discomfort with no radiation, associated with food intake. Objective Objective: PE: HEENT- No scalp lesions or echimosis, AMY, Horizontal nystagmus noted, Hearing intact, no swelling or echimosis noted on throat, trachea midline, no lymphadenopathy EXT- no swelling or echimosis noted, no pain or tenderness to palpation Neuro- DTRs 2+ in upper extremity and lower extremity bilaterally, babinski negative bilaterally. On strength testing of upper extremity was 4/5 forward flexion on the right 1/5 on the left, steel post installer strength was 4/5 on right and 2/5 on left. Strength of lower extremity was 5/5 bilaterally for straight leg hip flexion. Abdominal- soft to palpation, no guarding, no pain to palpation, murphys negative, liver span normal on percussion CV-S1 and S2 appreciated, systolic murmur noted over aortic area with carotid bruit Lungs- vesicular breath sounds heard throughout all lung ervin, chest rise equal bilaterally Diagnostics: CT: 1. No acute intracranial pathology. 2. Multilevel degenerative disc disease, facet arthropathy and uncovertebral joint hypertrophy within the cervical spine. 3. C4-C5 right-sided unilateral facet dislocation with 0.6 cm anterolisthesis of C4 on C5. A fracture present in the C5 vertebral body which exhibits mild anterior height loss. Also, a nondisplaced fracture is seen in the superior articular process at the left C4-C5 facet joint. 4. Nondisplaced fracture of an osteophyte at the anterosuperior corner of T1. 5. Mild compression injury within the superior third of the T2 vertebral body and mild compression fracture involving the superior endplate of the T3 vertebral body. Results Results: Vital Signs Date Time Temp Pulse Resp B/P Pulse O2 O2 Flow FiO2 Ox Delivery Rate 08/22 1621 98.0 97 18 130/68 99 Room Air 08/22 1324 98.1 89 16 116/76 99 Room Air 08/22 1149 102 110/72 08/22 1102 76/52 08/22 1046 97.7 113 20 96 Room Air Laboratory Tests 08/22/16 1409: Lactic Acid 1.1 08/22/16 1140: Urine Opiates Screen < 100.00, Methadone Screen < 40, Barbiturate Screen < 60, Ur Phencyclidine Scrn < 6.00, Amphetamines Screen < 100, U Benzodiazepines Scrn < 85, Urine Cocaine Screen < 50, Urine Cannabis Screen < 5.00, Urine Color YEL, Urine Clarity HAZY H, Urine pH 6.0, Ur Specific [place] 1.015, Urine Protein 30 H, Urine Ketones TRACE H, Urine Nitrite NEG, Urine Bilirubin NEG@ICTO, Urine Urobilinogen 1.0, Ur Leukocyte Esterase NEG, Ur Microscopic SEDIMENT EXAMINED, Urine RBC 1-3, Urine WBC 3-5 H, Ur Epithelial Cells FEW, Urine Bacteria FEW H, Granular Casts PACKD H, Urine Hemoglobin NEG, Urine Glucose 100 H 08/22/16 1110: Anion Gap 15, Estimated GFR > 60, BUN/Creatinine Ratio 47.5 H, Glucose 189 H, Hemoglobin A1c Pending, Lactic Acid 5.3 H, Calcium 9.6, Total Bilirubin 2.1 H, Direct Bilirubin 0.3, AST 64 H, ALT 58 H, Alkaline Phosphatase 56, Creatine Kinase 603 H, Troponin I 0.27 *H, Total Protein 6.5, Albumin 3.5, Globulin 3.0, Albumin/Globulin Ratio 1.2, CBC w Diff MAN DIFF ORDERED, RBC 4.28, MCV 93.1, MCH 31.3 H, RDW 13.2, MPV 7.9, Gran % 88.4 H, Lymphocytes % 4.2 L, Monocytes % 7.3, Eosinophils % 0, Basophils % 0.1, Absolute Granulocytes 9.8 H, Absolute Lymphocytes 0.5 L, Absolute Monocytes 0.8 H, Absolute Eosinophils 0, Absolute Basophils 0, Platelet Estimate ADEQUATE, Normocytic RBCs VERIFIED, Normochromic RBCs VERIFIED, PUBS MCHC 33.6, Serum Alcohol < 10.0 Microbiology 08/22 1227 URINE ROUT: Urine Culture - CAN Cancelled: Cancelled via OE: CAN BE ADDED ON 08/23 1139 URINE ROUT: Urine Culture - RECD 08/23 1139 URINE ROUT: Urine Culture - CAN Cancelled: ERROR 08/22 113 BLOOD: Blood Culture - RECD 08/22 1109 BLOOD: Blood Culture - RECD Assessment/Plan Assessment: Ms. De Paz is a 81 yo W F with a history of breast cancer, HTN, and Hyperlipidemia who is being admitted for LUE weakness, neck and L hand pain, and recurrent falls. Upon reviewing the CT scan results it was noted that she has multiple fractures of the spine which may be causing the weakness and neck pain, secondary to nerve impingement. On physical exam there was note of a systolic heart murmur possibly aortic stenosis with a carotid bruit. She also is having recurrent falls which may be due to near syncopal episodes from and undiagnosed vascular issue or possibly a vitamin deficiency. Problem List: 1. Cervical fractures 2. LUE weakness 3. Heart murmur 4. Recurrent falls 5. Nutrition 6. elevated BUN 7. Elevated troponins Plan: Problem List: 1. Spinal fractures- Consult with Ortho to assess the best way to proceed. Order MRI to look for any soft tissue disturbances that may be present. 2. LUE weakness- MRI to look for nerve impingement 3. Heart Murmur- Echo to assess for aortic stenosis 4. Recurrent falls- B12, B9 labs to assess for any possible neurological causes 5. Nutrition- educate patient on the importance of diet in maintaining appropriate electrolyte balance and vitamin intake. 6. elevated BUN- hydrate and replenish electrolytes 7. Elevated troponins-resolved Order EKG, Echo, labs, and rehydrate/replenish electrolytes acutely for patient. Reassess patient with lab and diagnostic reports as they are available.
--- NOTE | 2016-08-22 16:42 | Admission Certification ---
Admission Certification Certification Statement - As attending physician, I certify that at the time of - admission, based on clinical presentation, severity of - symptoms, need for further diagnostic testing and - therapeutic interventions, and risk of adverse outcomes - without in-hospital treatment, in my clinical assessment, - this patient requires an acute hospital stay for a minimum - of two nights or longer. I have also considered psychsocial - factors such as support system, advanced age, financial - issues, cognitive issues, and failed out-patient treatments, - past re-admission history, safety of patient, and lack of - compliance as applicable. Specific rationale supporting this admission is: elevated troponins and cervical spine fracture secondary to fall
--- NOTE | 2016-08-22 17:00 | PN- Att Addend ---
Attending MD Review Statement Attending Statement Attending MD Statement: examined this patient, discuss w/resident/PA/WEB SITE PROJECT MANAGER, agreed w/resident/PA/WEB SITE PROJECT MANAGER, reviewed EMR data (avail), discussed w/nursing Attending Assessment/Plan: Laboratory Tests 08/22/16 1409: Lactic Acid 1.1 08/22/16 1140: Urine Opiates Screen < 100.00, Methadone Screen < 40, Barbiturate Screen < 60, Ur Phencyclidine Scrn < 6.00, Amphetamines Screen < 100, U Benzodiazepines Scrn < 85, Urine Cocaine Screen < 50, Urine Cannabis Screen < 5.00, Urine Color YEL, Urine Clarity HAZY H, Urine pH 6.0, Ur Specific [place] 1.015, Urine Protein 30 H, Urine Ketones TRACE H, Urine Nitrite NEG, Urine Bilirubin NEG@ICTO, Urine Urobilinogen 1.0, Ur Leukocyte Esterase NEG, Ur Microscopic SEDIMENT EXAMINED, Urine RBC 1-3, Urine WBC 3-5 H, Ur Epithelial Cells FEW, Urine Bacteria FEW H, Granular Casts PACKD H, Urine Hemoglobin NEG, Urine Glucose 100 H 08/22/16 1110: Anion Gap 15, Estimated GFR > 60, BUN/Creatinine Ratio 47.5 H, Glucose 189 H, Hemoglobin A1c 5.3, Lactic Acid 5.3 H, Calcium 9.6, Total Bilirubin 2.1 H, Direct Bilirubin 0.3, AST 64 H, ALT 58 H, Alkaline Phosphatase 56, Creatine Kinase 603 H, Troponin I 0.27 *H, Total Protein 6.5, Albumin 3.5, Globulin 3.0, Albumin/Globulin Ratio 1.2, CBC w Diff MAN DIFF ORDERED, RBC 4.28, MCV 93.1, MCH 31.3 H, RDW 13.2, MPV 7.9, Gran % 88.4 H, Lymphocytes % 4.2 L, Monocytes % 7.3, Eosinophils % 0, Basophils % 0.1, Absolute Granulocytes 9.8 H, Absolute Lymphocytes 0.5 L, Absolute Monocytes 0.8 H, Absolute Eosinophils 0, Absolute Basophils 0, Platelet Estimate ADEQUATE, Normocytic RBCs VERIFIED, Normochromic RBCs VERIFIED, PUBS MCHC 33.6, Serum Alcohol < 10.0 Vital Signs Date Time Temp Pulse Resp B/P Pulse O2 O2 Flow FiO2 Ox Delivery Rate 08/22 1621 98.0 97 18 130/68 99 Room Air 08/22 1324 98.1 89 16 116/76 99 Room Air 08/22 1149 102 110/72 08/22 1102 76/52 08/22 1046 97.7 113 20 96 Room Air 81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 Patient says she has had multiple falls over the last few weeks and the last fall was this morning when she was unable to get up. Patient's family brought her to the hospital because of the above reason. Patient also says she has not been eating for the last 2 days anything and just drinking cranberry juice. Patient also takes Motrin for pain control once or twice a week. She denies any chest pain or any history of heart disease in the past. In ER patient was found to have on CT scan of cervical spine - "C4-C5 right-sided unilateral facet dislocation with 0.6 cm anterolisthesis of C4 on C5. A fracture present in the C5 vertebral body which exhibits mild anterior height loss. Also, a nondisplaced fracture is seen in the superior articular process at the left C4-C5 facet joint. Nondisplaced fracture of an osteophyte at the anterosuperior corner of T1. Mild compression injury within the superior third of the T2 vertebral body and mild compression fracture involving the superior endplate of the T3 vertebral body." She was also found to have troponin of 0.27 and acute kidney injury with BUN of 38 and creatinine of 0.8. She was also found to have high lactic acid of 5.3 and leukocytosis with white count of 11,000. On examination she has left arm weakness with the power of about 3/5 on the left upper extremity. Emergency room physician discussed with neurosurgery and they recommended hard cervical collar for the patient. No acute surgical intervention at this time. We will do serial troponins and admit her to telemetry. We will also give her IV fluids and monitor her renal functions. We will also repeat her lactic acid level. Patient does not appear to be septic and the increase in lactic acid could have been secondary to severe dehydration and possibly hypertension which would have led her to fall. Discussed with patient the care plan. Patient does not want any resuscitation. Also encouraged patient to have a living will and a healthcare proxy. Patient currently does not have those.
--- NOTE | 2016-08-22 17:53 | Cons- Neurosurgical ---
General Information and HPI Consulting Request Date of Consult: 08/22/16 Requested By: KYLIE JACKMAN MD Reason for Consult: Cervical spine injury Source of Information: patient, old records Exam Limitations: poor historian History of Present Illness: 81-year-old right-handed woman who was brought to the hospital today for a concern of neck pain left arm weakness multiple falls for 2 weeks apparently fell today or yesterday. The patient is an exceedingly poor historian and there is an element of confusion and any of her descriptions Apparently 2 weeks ago without any trauma she woke up with a feeling of a left arm she has been since that date only able to shrug her shoulder on the left and not use it she feels that this has this balanced her and let her to falling on a few occasions. It is possible that one of these occasions she was lying for a long period of time given that she isn't rhabdomyolysis On examination confirmed with the fact that she has been moving her right arm she seems to be indifference to have finding and is unable to say what that actually started She is not presently complaining of any neck pain she is not complaining of any radicular pain in her arms She denies any dizziness prior to or after the fall she denies any loss of sensation she denies any bowel or bladder dysfunction Allergies/Medications Allergies: Coded Allergies: amoxicillin (Intermediate, RASH 08/22/16) Sulfa (Sulfonamide Antibiotics) (SWELLING 08/22/16) erythromycin base (UNKNOWN 08/22/16) Home Med List: Amlodipine Besylate 5 MG TABLET 1 TAB PO DAILY HEART/BP (Reported) Lisinopril 20 MG TABLET 1 TAB PO DAILY HEART/BP (Reported) Current Medications: Current Medications Sig/Gisela Start time Last Medication Dose Route Stop Time Status Admin Ceftriaxone Sodium 1,000 MG ONCE ONE 08/22 1315 DC 08/22 IV 08/22 1316 1324 Ceftriaxone Sodium 0 .STK-MED ONE 08/22 1314 DC .ROUTE Potassium Chloride 10 MEQ ONCE ONE 08/22 1300 DC 08/22 IV 08/22 1301 1324 Sodium Chloride 1,000 ML BOLUS ONE 08/22 1145 DC 08/22 IV 08/22 1344 1149 Sodium Chloride 1,000 ML BOLUS ONE 08/22 1115 DC 08/22 IV 08/22 1214 1120 Past History Medical History Type of Reaction: Anaphylaxis (unknown) Neurological: NONE, see H&P EENT: NONE Cardiovascular: hypertension, hyperlipidemia Respiratory: NONE Gastrointestinal: NONE Hepatic: NONE Renal: NONE Musculoskeletal: NONE Psychiatric: NONE Endocrine: NONE Blood Disorders: NONE Cancer(s): NONE UROLOGY TEACHER/Reproductive: NONE Other Medical Hx: Has occasionally reported chest discomfort Was being cleared for cataract surgery Surgical History Pertinent Surgical History: none, 1 Family History Relations & Conditions If Any: FATHER (Diabetes). Psychosocial History Where Do You Live? Home Who Do You Live With? self Services at Home: None Primary Language: Palauan Smoking Status: Unknown If Ever Smoked ETOH Use: denies use Illicit Drug Use: denies illicit drug use Living Will? unknown Power of Take Out Waitress/HCP? unknown Name of POA/HCP: unknown Other Social History: Her mother is 98 and lives close by to her Functional Ability ADLs Independent: dressing, eating, toileting, bathing. Ambulation: independent IADLs Independent: shopping, housework, finances, food prep, telephone, transportation , medication admin. Employment History Employment: Retired Profession/Employer: uncertain Retired? yes Review of Systems Review of Systems: Denies any radicular pain. Denies any bowel or bladder dysfunction Review of Systems Constitutional: Denies: no symptoms. EENTM: Denies: see HPI. Cardiovascular: Denies: see HPI. Respiratory: Denies: see HPI. GI: Denies: see HPI. Genitourinary: Denies: see HPI. Musculoskeletal: Reports: see HPI. Skin: Denies: no symptoms. Neurological/Psychological: Reports: see HPI. Hematologic/Endocrine: Denies: see HPI. Immunologic/Allergic: Denies: see HPI. All Other Systems: Reviewed and Negative Exam & Diagnostic Data Vital Signs and I&O Vital Signs Date Time Temp Pulse Resp B/P Pulse O2 O2 Flow FiO2 Ox Delivery Rate 08/22 1621 98.0 97 18 130/68 99 Room Air 08/22 1324 98.1 89 16 116/76 99 Room Air 08/22 1149 102 110/72 08/22 1102 76/52 08/22 1046 97.7 113 20 96 Room Air Intake & Output 08/22 1600 08/22 0800 08/22 0000 08/21 1600 08/21 0800 08/21 0000 Intake Total 2200 Output Total 30 Balance 2170 Intake, IV 2200 Output, Urine 30 Patient 122 lb Weight Physical Exam: Awake alert and oriented. Somewhat vague on some answers. Cranial nerve symmetrical Nontender to palpation of her neck but is kept in the collar due to the x-ray findings. 5 deltoids bilaterally 3 over 5 biceps on the right thigh on the left 5 brachioradialis bilateral to 5 left wrist extension 3 over 5 right wrist extension 4 minus out of 5 right hand grasp to 3 over 5 left hand grasp. Sensory examination to touch within normal limits. Absent biceps brachioradialis and triceps reflexes. No increased finger flexors and no Steve reflexes. No sensory level on the thorax. 4+ over 5 strength both lower extremities. Areflexic at knee and ankle and toes are downgoing. No nystagmus and no dysmetria testing is obviously enlarged by her weakness Physical Exam General Appearance: thin Head: atraumatic Eyes: Bilateral: normal appearance. Ears, Nose, Throat: normal ENT inspection Neck: wearing her collar. Definite tenderness to palpation. Some spasm and paraspinous muscles Respiratory: normal breath sounds Cardiovascular: regular rate/rhythm Breasts Breast appear nl (deferred to primary care) Peripheral Pulses: 2+ carotid (R), 2+ carotid (L) Gastrointestinal: soft Rectal: deferred Back: no vertebral tenderness Extremities: normal inspection Neurologic/Psych: awake, alert, motor weakness Cranial Nerves: normal hearing Reflexes: 0: bicep (R), bicep (L), tricep (L), tricep (L), ankle (R), ankle (L). 1+: knee (R), knee (L). Skin: intact Lymphatic: no anterior cervical tricia Reproductive: Normal female genitalia (deferred) Pelvic: deferred Other Physical Findings: Toes downgoing Last 24 Hours of Labs: Laboratory Tests 08/22 08/22 08/22 1704 1409 1140 Chemistry Lactic Acid (0.7 - 2.1 mmol/L) 1.1 Magnesium (1.6 - 2.3 mg/dL) Pending Creatine Kinase (30 - 135 U/L) 490 H Troponin I (< 0.11 ng/ml) Pending Vitamin B12 (239 - 931 pg/mL) Pending Folate (2.76 - 20.0 ng/mL) Pending TSH (0.270 - 4.200 uIU/mL) Pending Free T4 (0.78 - 2.44 ng/dL) Pending Toxicology Urine Opiates Screen (>2000 NG/ML) < 100.00 Methadone Screen (>300 NG/ML) < 40 Barbiturate Screen (>200 NG/ML) < 60 Ur Phencyclidine Scrn (>25 NG/ML) < 6.00 Amphetamines Screen (>1000 NG/ML) < 100 U Benzodiazepines Scrn (>200 NG/ML) < 85 Urine Cocaine Screen (>300 NG/ML) < 50 Urine Cannabis Screen (>50 NG/ML) < 5.00 Urines Urine Color (YEL,AMB,STR) YEL Urine Clarity (CLEAR) HAZY H Urine pH (5.0 - 8.0) 6.0 Ur Specific [place] (1.001 - 1.035) 1.015 Urine Protein (NEG,<30 MG/DL) 30 H Urine Ketones (NEG) TRACE H Urine Nitrite (NEG) NEG Urine Bilirubin (NEG) NEG@ICTO Urine Urobilinogen (0.1 - 1.0 EU/dl) 1.0 Ur Leukocyte Esterase (NEG) NEG Ur Microscopic SEDIMENT EXAMINED Urine RBC (0 - 5 /HPF) 1-3 Urine WBC (0 - 2 /HPF) 3-5 H Ur Epithelial Cells (NONE,FEW) FEW Urine Bacteria (NEG/NONE) FEW H Granular Casts (NONE /LPF) PACKD H Urine Hemoglobin (NEG) NEG Urine Glucose (N MG/DL) 100 H 08/22 1110 Chemistry Sodium (137 - 145 mmol/L) 139 Potassium (3.5 - 5.1 mmol/L) 3.0 L Chloride (98 - 107 mmol/L) 103 Carbon Dioxide (22 - 30 mmol/L) 21 L Anion Gap (5 - 16) 15 BUN (7 - 17 mg/dL) 38 H Creatinine (0.5 - 1.0 mg/dL) 0.8 Estimated GFR (>60 ml/min) > 60 BUN/Creatinine Ratio (7 - 25 %) 47.5 H Glucose (65 - 99 mg/dL) 189 H Hemoglobin A1c (4.2 - 5.8 %) 5.3 Lactic Acid (0.7 - 2.1 mmol/L) 5.3 H Calcium (8.4 - 10.2 mg/dL) 9.6 Total Bilirubin (0.2 - 1.3 mg/dL) 2.1 H Direct Bilirubin (< 0.4 mg/dL) 0.3 AST (14 - 36 U/L) 64 H ALT (9 - 52 U/L) 58 H Alkaline Phosphatase (<127 U/L) 56 Creatine Kinase (30 - 135 U/L) 603 H Troponin I (< 0.11 ng/ml) 0.27 *H Total Protein (6.3 - 8.2 g/dL) 6.5 Albumin (3.5 - 5.0 g/dL) 3.5 Globulin (1.9 - 4.2 gm/dL) 3.0 Albumin/Globulin Ratio (1.1 - 2.2 %) 1.2 Hematology CBC w Diff MAN DIFF ORDERED WBC (4.8 - 10.8 /CUMM) 11.0 H RBC (4.20 - 5.40 /CUMM) 4.28 Hgb (12.0 - 16.0 G/DL) 13.4 Hct (37 - 47 %) 39.8 MCV (81.0 - 99.0 FL) 93.1 MCH (27.0 - 31.0 PG) 31.3 H RDW (11.5 - 14.5 %) 13.2 Plt Count (130 - 400 /CUMM) 222 MPV (7.4 - 10.4 FL) 7.9 Gran % (42.2 - 75.2 %) 88.4 H Lymphocytes % (20.5 - 51.1 %) 4.2 L Monocytes % (1.7 - 9.3 %) 7.3 Eosinophils % (0 - 5 %) 0 Basophils % (0.0 - 2.0 %) 0.1 Absolute Granulocytes (1.4 - 6.5 /CUMM) 9.8 H Absolute Lymphocytes (1.2 - 3.4 /CUMM) 0.5 L Absolute Monocytes (0.10 - 0.60 /CUMM) 0.8 H Absolute Eosinophils (0.0 - 0.7 /CUMM) 0 Absolute Basophils (0.0 - 0.2 /CUMM) 0 Platelet Estimate (ADEQUATE) ADEQUATE Normocytic RBCs VERIFIED Normochromic RBCs VERIFIED PUBS MCHC (33.0 - 37.0 G/DL) 33.6 Toxicology Serum Alcohol (<10 MG/DL) < 10.0 Imaging Results: CAT scan demonstrates a right-sided C4-C5 facet dislocation with perched facet with a 0.6 cm anterolisthesis of C4-C5. There is a fracture in the C5 vertebral body which exhibits mild anterior height loss. There is a nondisplaced fracture in the superior articular process in the left C4 5 facet joint. Nondisplaced fracture of osteophytes at the anterior superior corner of T1 Mild compression injury and the superior third of the T2 vertebral body and T3 vertebral body Other Results: High troponins. Evidence of rhabdomyolysis. Assessment/Plan Assessment/Plan This is a very odd presentation for situation. Her history is somewhat at odds with her findings. The cervical findings appear acute however her history goes back some any point in time to 10 days ago. She appears to have a belle indifference to her findings which are worse than what she is describing Certainly her bony findings alone do not explain her bilateral polyuria radiculopathies/neuropathies She is going to require an MRI with and without contrast at all possible but without contrast is necessary, under sedation since she is significantly claustrophobic, to determine if any disc pathology or intraspinal pathology are present I've taken the liberty of discussing this case with Eitan Valenzuela MD Problem List: 1. Cervical spine fracture 2. Elevated troponin 3. Elevated BUN 4. Rhabdomyolysis Other Findings/Comments: Despite we will warrant probably a full incomplete evaluation by medical neurology as well Copies To: AUGUSTINA MCMAHON,KYLIE Blanc; DON MCMAHON,EITAN Felix. Consult Acknowledgment - Thank you for your consult request. Attending MD Review Statement Attending Statement Attending MD Statement: reviewed images Attending Assessment/Plan: See my note above
--- NOTE | 2016-08-22 19:44 | Patient Discharge Instructions ---
Discharge Instructions General Discharge Information You were seen/treated for: - Weakness in left upper extremity - Cervical neck fractures. Watch for these problems: #1 loss of sensation in bilateral upper and lower extreme is. #2 loss of bowel/bladder function. Special Instructions: #1 please follow up with her primary care doctor within 1-2 weeks of discharge. #2 please follow up with her neurologist within 1-2 weeks of discharge. #3 please follow up with her neurosurgeon within 1-2 weeks of discharge. #4 please follow with the orthopedic surgeon within 1-2 weeks of discharge. #5 please take her medications as prescribed. Acute Coronary Syndrome Inclusion Criteria At DC or during hospital stay patient has or had the following: ACS DIAGNOSIS No Discharge Core Measures Meds if any: Prescribed or Continued at Discharge Meds if any: NOT Prescribed or Continued at Discharge Congestive Heart Failure Inclusion Criteria At DC or during hospital stay patient has or had the following: CHF DIAGNOSIS No Discharge Core Measures Meds if any: Prescribed or Continued at Discharge Meds if any: NOT Prescribed or Continued at Discharge Cerebrovascular accident Inclusion Criteria At DC or during hospital stay patient has or had the following: CVA/TIA Diagnosis No Discharge Core Measures Meds if any: Prescribed or Continued at Discharge Meds if any: NOT Prescribed or Continued at Discharge Venous thromboembolism Inclusion Criteria VTE Diagnosis No VTE Type NONE VTE Confirmed by (Test) NONE Discharge Core Measures - Per Current guidelines, there needs to be overlap - treatment for the first 5 days of Warfarin therapy. - If discharged on Warfarin prior to 5 days of - overlap therapy, the patient will need to be - assessed for post discharge needs including - *Post discharge parental anticoagulation - *Warfarin and/or parental anticoagulation education - *Follow up date to check INR post discharge At least 5 days overlap therapy as Inpatient No Meds if any: Prescribed or Continued at Discharge Note: Overlap Therapy is Warfarin and Anticoagulant Meds if any: NOT Prescribed or Continued at Discharge
--- NOTE | 2016-08-22 20:09 | Discharge Summary ---
Visit Information Visit Dates Admission Date: 08/22/16 Discharge Date: 08/22/16 Hospital Course Course Attending Physician: AUGUSTINA MCMAHON,KYLIE Blanc Primary Care Physician: SHAYY MCMAHON,CristinSydenham Hospital Course: Ms De Paz is a 81 yr old woman who was known to be in her usual state of health until a few weeks ago. She has a past medical history of hypertension, hyperlipidemia. She was brought to [facility] with a chief concern of neck pain, left arm weakness, multiple falls 2 weeks. As per the patient and the family, she had multiple falls in the last 2 weeks, frequency of which worsened in the last few days. Worsening left arm weakness in the last 2 days. At the time of admission, temperature 97.7, pulse rate 113, blood pressure 110/ 72, 96% on room air. Neurological examination revealed motor weakness on the left upper extremity, with 1+ biceps, brachial radialis and triceps reflexes on the left side. Lab findings indicated leukocytosis WBC 11.0, hemoglobin 13.4, hematocrit 39.8, platelets 222. EKG revealed normal sinus rhythm, no ST-T wave inversions. Electrolytes-sodium 139, potassium 3.0 (replenished), bicarbonate 21, BUN 38, serum creatinine 0.8, glucose 189, lactic acid 5.3 (decreased to 1.1 after fluid resuscitation), magnesium 1.8, total bilirubin 2.1, AST 64, ALT 58, alkaline phosphatase 56, creatinine kinase 603, serial cardiac enzymes-troponin I 0.27--> 0.23. Urine toxicology was negative for opiates and barbiturates. Urinalysis revealed W BC 3-5, urine leukocyte esterase negative, urine nitrite negative. CT head-did not show any acute intracranial pathology. CT cervical spine revealed C4-C5 right-sided unilateral facet dislocation with 0.6 cm anterolisthesis of C4 on C5. A fracture present in the C5 vertebral body which exhibits mild anterior height loss. Also, a nondisplaced fracture is seen in the superior articular process at the left C4-C5 facet joint. MRI was not done. Admission diagnosis: #1 elevated cardiac enzymes #3 cervical neural cord compression #4 cervical spine fracture #5 rhabdomyolysis Below is the problem list and plan: #1 elevated cardiac enzymes-likely due to supply demand mismatch type II DC. Serial echocardiogram grams did not reveal any ST-T wave changes. Serial cardiac enzymes trended down. Patient did not have any cardiac symptoms, at the time of admission. Blood pressure was stable. From a cardiac standpoint, a pharmacological stress test would be ideal prior to any surgical intervention. She was to be continued to be monitored on cardiac floor to check for any possible arrhythmias that could have resulted in multiple falls. [employer] Control Room Operator- Dr. Hernandez was consulted for advice. Echocardiogram could not be done in the ER. No antiplatelet drugs were administered. #2 possible cervical cord compression-considering the acuity of presentation, and odd presentation of motor symptoms discordant to bony findings alone, a cord compression was considered in the differential. She was continued on neck brace. The patient did not have any neck pain. An MRI could not be done. Dr. Kaden Hale MD , neurosurgeon was consulted for advice. No steroids were administered at this time. #3 abnormal electrolytes and rhabdomyolysis-hypokalemia. Electrolytes replenished appropriately, and was continued on intravenous fluids. #4 hypertension-continued on home dose of lisinopril and amlodipine. #5 patient's family-Maddison [phone] (home), Marek [phone] (cousin), Anupama [phone], Bruce Arroyo [phone], (cousin), are to be contacted in case of emergency. As per Ramírez Valenzuela MD, the patient was to be transferred to [facility] for specialized care. Allergies: Coded Allergies: amoxicillin (Intermediate, RASH 08/22/16) Sulfa (Sulfonamide Antibiotics) (SWELLING 08/22/16) erythromycin base (UNKNOWN 08/22/16) Pertinent Lab Results: CAT - CT CERV SPINE WO IV CONTRAST; CT HEAD WO IV CONTRAST : 08/22/16-1108 Head - Contiguous axial imaging of the head was performed from the skull base to the vertex without the administration of intravenous contrast, and axial images reconstructed at 0.625 mm, 2.5 mm and 5 mm slice thickness. Cervical spine - Volumetric, helical CT acquisition of the cervical spine was obtained without contrast; in addition to the standard set of axial images, multiplanar reformatted images were provided in the coronal and sagittal imaging planes. DLP: 922 mGy-cm (total) FINDINGS: HEAD: Atherosclerotic calcification of cavernous carotid arteries. Findings suggestive of chronic, mild microangiopathy. No acute major vascular territorial infarction, hemorrhage, extra-axial fluid collection, focal mass effect or midline shift. Mild atrophy of cerebral hemispheres associated with symmetric prominence of ventricles and sulci. No acute findings within the posterior fossa. The calvarium is intact and the visualized paranasal sinuses, mastoid air cells and middle ear cavities are well aerated. No acute intraorbital pathology. CERVICAL SPINE: The occipital condyles, atlas, axis and atlantoaxial articulation are intact. There is degenerative subarticular spurring at the atlantodens joint. C2-C3 disc space is maintained. There is left-sided facet ankylosis at C2-C3. At C3-C4, there is moderate degenerative disc space narrowing and facet arthropathy with 0.2 cm degenerative anterolisthesis of C3 on C4. The left-sided uncovertebral joint hypertrophy produces moderate foraminal stenosis. At C4-C5, there is facet arthropathy, degenerative disc space narrowing, vacuum disc phenomenon and traction osteophyte formation. There is right-sided unilateral facet dislocation associated with 0.6 cm anterolisthesis of C4 on C5. There is a nondisplaced fracture in the left C5 vertebral body that extends anteroinferiorly into the vertebral body from the region of the uncovertebral joint, and small displaced fragment is seen at the anterosuperior corner of the vertebral body. Mild anterior height loss of the C5 vertebral body. Also, there appears to be a small, nondisplaced fracture of the superior articular process at the left C4-C5 facet. The C4-C5 uncovertebral joint and facet hypertrophy produce at least moderate left-sided foraminal stenosis at this level. At C5-C6 and C6-C7, there is severe degenerative disc space narrowing, vacuum disc phenomenon, endplate sclerosis, endplate cystic changes and osteophyte formation. The uncovertebral joint hypertrophy produces moderate bilateral foraminal stenosis. At C7-T1, there is mild degenerative disc space narrowing, vacuum disc phenomenon and facet arthropathy. There is a nondisplaced fracture of an osteophyte at the anterosuperior corner of T1. T1-T2 disc space is maintained. There is a transverse area of sclerosis from mild compression injury in the superior third of the T2 vertebral body. Also, there is mild concave compression fracture deformity involving the superior endplate of the partially visualized T3 vertebral body. IMPRESSION: 1. No acute intracranial pathology. 2. Multilevel degenerative disc disease, facet arthropathy and uncovertebral joint hypertrophy within the cervical spine. 3. C4-C5 right-sided unilateral facet dislocation with 0.6 cm anterolisthesis of C4 on C5. A fracture present in the C5 vertebral body which exhibits mild anterior height loss. Also, a nondisplaced fracture is seen in the superior articular process at the left C4-C5 facet joint. 4. Nondisplaced fracture of an osteophyte at the anterosuperior corner of T1. 5. Mild compression injury within the superior third of the T2 vertebral body and mild compression fracture involving the superior endplate of the T3 vertebral body. --------- RAD - XRY-PORTABLE CHEST XRAY The lungs are well expanded. No consolidation, edema, or effusion. No pneumothorax. The cardiomediastinal silhouette is unchanged. Mild compression deformities of the T2 and T3 vertebral bodies seen on the prior cervical spine CT are not visualized on this study. IMPRESSION: No acute pulmonary findings. Disposition Summary Disposition Principal Diagnosis: Elevated cardiac enzymes Additional Diagnosis: Rhabdomyolysis Discharge Disposition: home or self care Discharge Instructions General Discharge Information Code Status: Full Code Patient's Diet: Nothing by mouth Patient's Activity: Immobilization Follow-Up Instructions/Appts: Please follow-up with your neurologist/neurosurgeon/orthopedic surgeon. Medications at Discharge Discharge Medications: Continue taking these medications: Lisinopril (Lisinopril) 20 MG TABLET 1 Tablet ORAL DAILY Amlodipine Besylate (Amlodipine Besylate) 5 MG TABLET 1 Tablet ORAL DAILY Copies To: SHAYY MCMAHON,Wendy MCLAIN Attending MD Review Statement Documenting Attending: DENNIS MCMAHON,MARY
[2016-08-22 20:30] VITALS: BP 134/73
--- NOTE | 2016-08-23 08:30 | Cons- Orthopedic ---
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 Orthopaedic spine surgical consultation evaluation was requested by Kaden Hale M.D. (Neurosurgery consultation service) after he was consulted by the emergency department attending to evaluate the patient for the CT finding of unlateral perched facet in the face of reported isolated left upper extremity weakness which was difficult to assess by the emergency department staff at the time of initial consultation due to the patient's lethargy presumably related to rhabdomyolysis. The orthopaedic surgeon on general orthopaedic call was initially contacted per protocol and he agreed that subspecialty spine consultation would be most appropriate in this case. The initially documented patient-provided history was quite different than the final elucidated history which did not become available until late on the day of presentation as detailed below. The patient initially reported a much more chronic two week duration of progressively worsening left upper extremity weakness and ambulatory difficulty following a fall which she reported as having been somewhere between 2 weeks and a month ago with more recently associated increasing difficulty in independent function and frequent falls over the past week or more. This initial information was evidently provided by the patient before her family (several cousins and [id number]) arrived to clarify the history at which point several discrepencies, inconsistencies and uncertainties were revealed. This new history did not become available to the consulting surgeons until they saw the patient in the emergency department at the end of the day. Those evaluations also revealed her bilateral upper extremity weakness and clinical evidence of bilateral multiradicular and spinal cord involvement. Ultimately, it was determined that the patient's direct history was likely inaccurate however this was not clear until late on the day of presentation and after orthopaedic spine consultation history had been obtained by phone from the patient's [id number] Anupama who in turn contacted other family members to confirm observations and details of events over this past weekend which suggested that the patient's functional deficit was much more subacute than had initially been reported. At that point it became clear that the patient was confused with most of her provided history having actually occurred but being very inaccurate and a few components of her history not having actually occurred and possibly representing delusions without evidence of psychosis. As the history became more clear, possible etiologies for her confusion were also revealed including closed head injury, metabolic abnormalities associated with trauma and prolonged immobilization resulting in moderate rhabdomyolysis, occult alcohol use, previously diagnosed mild dementia and other potential contributing factors. The evolution of the patient's neurologic involvement is still unclear but it appears that she was fully functional last (although possibly with some baseline ambulatory and balance difficulty which she was previously adequately accommodating to) when one of her cousins reported that she had driven her car to go shopping and had unloaded groceries independently prior to him observing her ambulating and using all extremities normally. At some point on Monday a family member called and got no answer which was unusual but not rare. On Monday another family member called and got no answer but the two did not communicate about this until Monday when this duration of lack of communication became concerning. The family members went to her residence on Monday and found her on the floor in the bathroom. The patient cares for her blind 98 year old mother who was trying to help her get up when the family arrived and was not sure how long she had been down. The overall presentation would be most consistent with a fall at some point during the evening on Monday but could have been as early as Monday or as late as Monday. She was reportedly lucid and complained of only mild neck pain but was uncertain how long she had been down. This initial fall appears to be the most likely event to have caused her cervical spine injury and there was some evidence of mild posterior cranial contusion which would be consistent with her cervical fracture dislocation. Initially the patient had reported a significant fall several weeks to a month ago but the family was not aware of any such fall. By family member recollection she was unable to pull with the left arm when they tried to get her off the floor and she had to be lifted to the standing position but once on her feet she was able to stand and support herself with her legs and balance by pushing with both arms on family members providing support on either side. The family was not sure whether she was able to pull with the right arm and could not recall whether there was any shoulder weakness. They seemed to remember that both hands were functioning with certified medical biller. In retrospect they recall her having difficulty reaching when they tried to assist her off the floor but could not be certain if this difficulty involved only the left arm or both arms. She refused to have family call emergency services and was helped to bed. They checked on her later that afternoon and again found her on the floor. The patient insisted that she had lowered herself down and the family did not see any evidence of new injury or change in her condition by their report. She again refused transport to the hospital and was assisted back to bed. The family checked on her early the following morning and she again found on the floor next to her bed. The family did not recall any change in her motor function compared to when they initially found her on the bathroom floor 24 hours prior. They continued to note left upper extremity weakness but were uncertain if there was any right sided involvement over the period that they observed her at home. They did recall that she was able to grasp with both hands and bear weight well enough to ambulate with assistance throughout that time period. They did not report any loss of consciousness, suggestion of seizure activity, incontinence or other abnormalities during this period. They felt that she may have been somewhat confused and hypersomnolent but not severely so and because she seemed cognitively normal they honored her insistence not to be taken to the hospital until she continued to have difficulty into Monday. The patient again reported that she had lowered herself down from bed but this time the family noted some signs of impact to both hands, wrists and knees. She still refused ambulance transport but did agree to be taken by car to [facility] at her families insistence. She was stable on arrival to [facility] Emergency Department and was able to provide initial (albeit inaccurate) history. Initial examination reported to the first consulted service was of isolated left arm weakness but was evidently limited as the patient became increasingly lethargic. She required fluid rescusitation and responded over a few hours to the point that a more detailed assessment could be performed. Based on the emergency department report the patient had multiple extremity weakness on that secondary assessment much later in the day once she was less lethargic. The neurosurgical and orthopaedic spine surgical consultants were first made aware of the patient's bilateral upper extremity weakness when they arrived to perform consultation evaluations late in the afternoon. The patient felt that her bilateral weakness had been present for several days or more but her history is unreliable. In retrospect, the family felt that her condition was unchanged since they found her on Monday and did not recall her being able to raise either arm for reaching during the day that they were observing her at home (although this history is not definitive). The consultation evaluations were within one hour of one another and both documented similar deficits with no definitive prior examination documenting better prior function to suggest an evolving deficit or other acutely progressive process. Similarly, the patient's suspended sensory level and more subtle subcervical left hemibody sensory and motor deficits agree between the two remediation bioanalytics consultant examinations, appear to have been stable since presentation (and probably since her initial fall) and were without prior documentation of higher level function to suggest a progressing neurological process. Once the patient was sufficiently awake at the time of consultation evaluations, her spinal cord involvement could be specifically documented and correlated with the history provided by the family. At that point it became evident that more urgent additional radiologic studies would be necessary as the new available history suggested that her deficits were subacute (likely 36-72 hours old) rather than chronic (weeks old) as had initially been reported by the patient. Cervical MRI was recommended as the best study to provide the necessary information for operative planning, however this study was not available at [facility] on an urgent basis at the time of request and so [facility] tertiary care transfer arrangements will be made on an urgent basis. The patient denies any prior history of severe and incapacitating neck pain and has never had any prior radiating arm pain, numbness, weakness, dyscoordination or dysfunction. She does report prior history of activity related and activity- limiting lower back pain but no associated ambulatory difficulty or falls. No prior history of severe or even significant cervical, cranial or other trauma was reported. No prior radiographs are available for comparison. She reports her last oral intake early this morning around breakfast time and that was minimal. She has been NPO and in a rigid cervical collar since arrival to the emergency department. The patient has a significant past medical history of hypertension, hyperlipidemia, heart murmur and cataracts which is detailed in the emergency department and other consultation records. She reports no other significant past medical history pertinent to her current orthopaedic spine surgical management. There may be a diagnosis of early dementia by her primary care physician (Dr. Waters) but those records are not available for review presently. If this diagnosis has been made, it appears that this is being observed for now and is not requiring any specific treatment. She reports no significant past surgical history pertinent to her current orthopaedic spine surgical management. She denies any complications, adverse events or outcomes associated with procedures, tests or interventions. Her current and active medications include Amlodipine and Lisinopril. She denies any adverse effects from either of these medications. She reports a history of non-anaphylactic allergic reactions to Amoxicillin (rash), Sulfa medications (swelling without respiratory change) and Erythromycin base (uncertain reaction) but no other anaphylactic, anaphylactoid or allergic reactions or sensitivities to medications, foods or skin contact environmental allergens. She denies any other non-allergic reactions or sensitivities. She is a non-smoker but does report drinking a half bottle (~300 cc by her report) of Congac most nights. She admits to keeping this from her family who were unaware of this history. According to the family history, which provides limited detail but appears to be more accurate than the patient's somewhat confused account, she had been normally and independently functional until her fall and was last observed by family to have normal upper extremity function as of last . She cares for her elderly mother and has been the primary caregiver for quite some time now without difficulty. She has family (cousins) who check on them both and will be arranging for full-time care for her mother whiile she is in the hospital. Allergies/Medications Allergies: Coded Allergies: amoxicillin (Intermediate, RASH 08/22/16) Sulfa (Sulfonamide Antibiotics) (SWELLING 08/22/16) erythromycin base (UNKNOWN 08/22/16) Home Med List: Amlodipine Besylate 5 MG TABLET 1 TAB PO DAILY HEART/BP (Reported) Lisinopril 20 MG TABLET 1 TAB PO DAILY HEART/BP (Reported) Past History Medical History Type of Reaction: Anaphylaxis (unknown) Neurological: NONE, see H&P EENT: NONE Cardiovascular: hypertension, hyperlipidemia Respiratory: NONE Gastrointestinal: NONE Hepatic: NONE Renal: NONE Musculoskeletal: NONE Psychiatric: NONE Endocrine: NONE Blood Disorders: NONE Cancer(s): NONE 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 Psychosocial History Where Do You Live? Home Who Do You Live With? self Services at Home: None Primary Language: Albanian Smoking Status: Unknown If Ever Smoked ETOH Use: denies use Illicit Drug Use: denies illicit drug use Living Will? unknown Power of Painter And Decorator/HCP? unknown Name of POA/HCP: unknown Other Social History: Her mother is 98 and lives close by to her Functional Ability ADLs Independent: dressing, eating, toileting, bathing. Ambulation: independent IADLs Independent: shopping, housework, finances, food prep, telephone, transportation , medication admin. Employment History Employment: Retired Profession/Employer: uncertain Retired? yes Review of Systems Review of Systems: Secondary review of symptoms and history related to all major bodily systems did not reveal any new information compared to the history detailed above or similar review documented in the emergency department and other consultation records. Refer to those documents for specific review of systems information. Exam & Diagnostic Data Vital Signs and I&O AVSS. No vital sign changes or instabilities were reported or noted during the consultation assessment. Physical Exam: The patient was observed to be resting comfortably in the supine position with her neck stabilized in the neutral position by a well-fitted emergency medical services rigid cervical collar. She was fairly lucid but did have continued evidence of memory lapse, poor recollection of timing of her injury and even some delay in identifying the president and the day of the week (although year, month, hospital name and other information was fairly rapidly recalled). Her history was still unreliable although she did not seem to have some of the delusional reporting that was documented earlier regarding prior falls. She still had confusion regarding the duration of her symptoms and deficits insisting that her left arm weakness had been present for weeks, not clearly connecting her left arm weakness to a fall and uncertain when her right arm became a problem. She did seem to correct her history when her family's report of events were related to her saying "that sounds right" but even when she was told that her family member (cousin) saw her functioning normally on she felt that her left arm weakness had been present before that. She was not hypersomnolent or photophobic and did not have any other significant signs of closed head injury. The front of the rigid cervical collar was unfastened and opened while maintaining the support and stability of the posterior section throughout the cervical spinal examination. The cervical region was circumferentially inspected and palpated whiile maintaining the supported neutral alignment of the neck using the posterior section of the cervical collar as well as manual stabilization. There were no lacerations, lesions or significant ecchymotic areas noted. There was no noticeable tenderness to palpation in the anterior or bilateral cervical regions and only moderate midcervical midline posterior tenderness in the region of the fracture dislocation correlating with the radiologic findings. This tenderness was focal and isolated to the midline and paramedian structures without extension into the posterolateral paraspinal muscular regions. The area of midline tenderness was associated with a subtle widening and lateral deviation at the tender interspinous segment correlating well with the radiologic level (C4-C5) of perched facet. An area of midline softening in the interspinous segment is palpable in this thin patient suggesting a possible ligamentous disruption but there is not an obvious defect and so a severe sprain versus triston tear cannot be determined definitively on current examination. There was no suboccipital, occipital or other cranial tenderness except for a small contusion associated with moderate but not severe tenderness at the most posterior prominence of the occiput consistent with direct impact in this region and her most likely mechanism of cervical spinal injury (intermediate energy forced flexion mechanism probably combined with lesser posterior distractive component). There was no cervicothoracic junction region tenderness. There was no trapezial, clavicular, lateral shoulder, upper thoracic, thoracic paraspinal, periscapular or scapular tenderness on either side and no visual signs of injury in any of these areas. There were no radiating symptoms or muscular spasms reported or appreciated on examination associated with the tenderness on palpation. Due to the known cervical spine injury and potential instability, cervical motion was not tested even through low arc. Once visual and palpation examinations were complete the anterior section of the cervical collar was reapplied and optimal stabilization was confirmed with symmetrical and circumferential support from inferior contact points (sternum, bilateral clavicle and trapezius, bilateral upper scapula and upper thoracic midline) to the superior contact points (mandibular, mastoid and suboccipital) providing complete immobilization. No cutaneous irritation was noted at any of the contact points. Bilateral upper extremity visual examination noted limited spontaneous motion of either shoulder or upper arm but normal spontaneous hand motion. No gross atrophic changes, spasticity or faciculations were appreciated. There were no lacerations, cutaneous or other soft tissue lesions or ecchymotic areas appreciated except for mild findings suggestive of low-energgy impact to the volar hands and posterior elbows consistent with falls, likely with limited protection from impact, as described in her history. To command the patient was very limited in flexion or abduction of either shoulder as well as flexion of either elbow even isolated only against gravity. Detailed neurological examination is described below. On bilateral upper extrmity neurovascular examination the patient had significant motor and sensory deficit with left greater than right severity but fairly symmetrical pattern primarily in the C5 and C6 radicular distribution consistent with a central cord syndrome at that spinal cord level. Shoulder shrug was only minimally and symmetrically weak at 4+/5 and most of this appeared to be give-way weakness due to neck pain. Her shoulder abduction, shoulder flexion and external rotation strength were 2+/5 on the right and only 1/5 on the left. Biceps and wrist extension were 3-/5 on the right and 2/5 on the left. Triceps was considerably stronger at 5-/5 on the right and 4/5 on the left. Wrist flexion and finger extension were intermediate in strength at 4/5 on the right and 3/5 on the left. Finger abduction was weak at 3+/5 on the right and 3/5 on the left. Counter Waiter strength was fairly strong (similar to triceps) at 5-/5 on the right and 4/5 on the left. On lower extremity motor examination she had diffuse normal power on the right at 5/5 and diffuse moderate strength deficit on the left at 4/5. Her sensory examination showed light touch and pinprick loss of sensation ( hypoesthesia estimated by the patient to be 50% of normal sensory magnitude on the right and 25% on the left) without significant paresthesia or dysesthesia reported in the shoulder region (from the mid-trapezial level over the lateral shoulder, posteriorly to the midscapular level and anteriorly just below the clavicle) extending down the lateral upper arm and to the dorsolateral mid- forearm bilaterally. Sensation to light touch as well as dull and sharp discrimination testing was otherwise normal on the right above the mid-trapezial level and below the medial arm and clavicular level. Similar testing on the left showed normal sensation above C5 but diffuse mild hemibody sensory decrease to all modalities tested (approximately 75% of normal) below the more dense bilateral suspended sensory level described above. There was normal gluteal and sacral region sensation with no report or sign of incontinence. Rectal examination was deferred. Reflexes were hypoactive (1+/4) throughout with no abnormal, hyperreflexic, disinhibited or primitive reflexes detected and negative Hoffmans, Babinski (no response) and clonus responses bilaterally. The overall minimal reflex responses in the absence of any evidence of either spinal cord release signs or spinal shock suggests that this reflex examination represents her normal reflex response profile and is unchanged from baseline however this cannot be determined definitively. 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 On comprehensive general trauma examination, the patient was in no acute distress and there were no lacerations, abrasions, ecchymotic areas or deformities noted on full body superficial survey visual and palpation examination. This portion of the examination was performed in the supine position and, where necessary for posterior examination, using log-roll technique with the cervical spine continuously immobilized in the cervical collar and with the head and neck supported. Her posterior, superior and lateral cranial examination is described above. Her anterior craniofacial examination was unremarkable without cutaneous findings, tenderness or crepitus to palpation. Her ears, nose and throat were normal to gross examination with no sign of hemorrhage, deformity or trauma. Her vocalizations were normal and her respirations were unobstructed. Her anterior neck was normal without swelling or tracheal deviation. Carotid pulses were normal with no jugulovenous distention evident. Clavicles, acromioclavicular joints and shoulder girdles were nontender and without deformity or suggestion of fracture, separation or dislocation. The upper extremities showed significant neurological deficit and limitiation of active motion as described above. Otherwise both upper extremities were musculoskeletally normal to visual, palpation and passive motion examination in all regions without evidence of soft tissue, articular or osseous injury. Upper extremity peripheral pulses were normal with good capillary refill and no clubbing or other obvious abnormality. The immobilized cervical, cervicothoracic and upper thoracic spine examination is described in detail above. The remaining thoracic region and the lumbar spinal examination was normal without midline visualized or palpable evidence of trauma or deformity and without midline, paraspinal, posterolateral, flank or costovertebral angle tenderness. The sacral and sacroiliac joint regions were nontender and normal otherwise to visual and palpation examination. The chest wall was nontender and without deformity. Lung ervin were clear to auscultation and both inspiratory and expiratory effort were normal. Oxygenation was normal by pulse oximetry monitoring. Cardiac examination revealed a regular rate and rhythm with no murmur or other abnormal auscultation. The abdomen was benign with active bowel sounds and no abnormal vascular sounds to auscultation. There was no abdominal tenderness to palpation in any region or quadrant, no rebound and no palpable hepatosplenomegaly or mass. The pelvis was nontender and stable to moderate distractive and compressive pressure applied at the iliac margins. The bilateral lower extremity neurological examination is described in detail above. With the exception of the mild but consistent left hemibody motor and sensory deficit described above, the lower extremity neurolovascular and musculoskeletal examination was normal to visual, palpation and passive motion examination in all regions without evidence of soft tissue, articular or osseous injury. Lower extremity peripheral pulses were normal with good capillary refill and no other obvious abnormality. Last 24 Hours of Labs: See emergency department lab summary. Her emergency department initial laboratory studies showed primary findings of elevated troponin I (0.27), creatinine kinase (603), serum (189) and urine (100) glucose, AST (64), ALT (58) and total bilirubin (2.1). Other abnormalities of lesser significance included mildly elevated urine protein (30), ketones (trace) , WBC (3-5) and bacteria (few). There was no evidence of anemia and her mild leukocytosis, granulocytosis, monocytosis and lymphocytopenia on CBC are mostly consistent with demargination and stress reaction due to trauma and prolonged immobilization. The remainder of her laboratory studies were unremarkable and noncontributory to her consultation assessment. Tox screen was negative for alcohol, medications or other substances which might contribute to the patent's moderately confused mental state. Imaging Results: The patient's cranial CT reportedly showed no acute intracranial pathology. I would agree with the radiology reading of the cervical spine CT scan which was described as showing a right C4-C5 unilateral facet dislocation and which, by my reading using spine surgical terms and definitions, would best be described as a unilateral perched and impacted facet with fairly stable overall configuration. This is associated with a mildly compressed C5 anterior vertebral body fracture extending obliquely through the left side of the vertebral body and exiting through the upper posterior endplate on that side (without displacement or retropulsion) and a nondisplaced C4 superior articular process fracture. There is only mild central canal spondylotic encroahment or other narrowing. The only significant canal narrowing is in the right lateral recess where there is mild to moderate narrowing secondary to unilateral anterolisthesis and concomitant projection of the intact right superior posterior corner of the C5 vertebral body into the canal relative to the anterior subluxed C4 laminar resulting in approximately 50% "pincer effect" in the right canal at that level consistent with the patient's physical examination findings. She appears to have had a mid -Grade I spondylolisthesis at the C4-C5 level even before this injury (based on the anterolisthesis evident even on her non-subluxed left side) which is increased to Grade II on the right due to the perched facet. The patient has diffuse and (at several levels) fairly severe degenerative and vacuum disk changes, facet arthropathy and uncovertebral joint hypertrophy with bilateral foraminal stenosis There are also nondisplaced fractures reported of an osteophyte at the anterosuperior corner of T1 as well as mild compression fractures involving the superior third of the T2 and the superior endplate of the T3 vertebral bodies without retropulsion or encroachment. 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 Several minimally or nondisplaced fractures at that same and other cervical and thoracic levels were noted on CT scan however the primary level of injury and level requiring spine surgical treatment is the C4-C5 level. The patient's medical issues have now been stabilized sufficient for transfer and likely sufficient for any surgical intervention that she will require. The original presentation and history suggested that her deficit was more chronic (based on history from the patient which turned out to be inaccurate due to her dementia). Her more acute history as well as her bilateral involvement suggesting spinal cord rather than nerve root involvement did not become evident until neurosurgery and orthopaedic spine consultation evaluations were performed during the late afternoon after the patient had recovered from an episode of instability and poor responsiveness (related to metabolic issues, rhabdomyolysis , dehydration and other potential causes including closed head injury and mild baseline dementia) which began shortly following initial presentation to the [facility] Emergency Department and made assessment difficult during that period. More detailed history from the patient's family obtained by phone contact later in the day following subspecialty consultations revealed that the timeline of deficit was more subacute. The patient's spinal injury likely occurred some time between Monday and Monday. Her deficits were likely stable since Monday with dense left upper extremity and some ambulatory deficit being reported. The right upper extremity deficit was not as clearly documented by the family. The patient refused to come to the emergency room until this morning which was at least 24 hours (and possibly more) following her injury and onset of severe motor deficit. There has been no evidence of evolving spinal cord neurological process since emergency department presentation however detailed evaluation has been limited due to the patient's other issues. The family did not feel that the patient's condition had significantly changed since they intially found her on Monday after her first reported fall. Once the subacute nature of her injury with spinal cord involvement and bilateral deficits became evident, more urgent additional radiologic studies ( cervical MRI) were recommended in order to determine the optimal course of further treatment. This necessary study was not available at [facility] on an urgent basis at the time of request and so [facility] care transfer arrangements were be made on an urgent basis. The [facility] transfer service phone number was contacted and the community health program representative contacted the Neurosurgery attending specification writer (Lito Kapoor M.D.) per their standard referral protocol. I spoke directly to Dr. Kapoor and provided all necessary background information so that transfer as well as initial admission and urgent treatment plans could be made. All records were copied and all radiographic studies and images were burned to CD to be sent with the patient to the accepting tertiary transfer facility ([facility]). Final transfer arrangements were made once confirmation phone contact came from the accepting service that the ICU bed which they required (given the patient's elevated Troponins) had been arranged. Appropriate emergency ambulance monitored transport was arranged. The patient's last reported oral intake was early this morning around breakfast time and that was minimal. She has been NPO and in a rigid cervical collar since arrival to the [facility] Emergency Department. Problem List: 1. Cervical spine fracture 2. Rhabdomyolysis 3. Elevated troponin 4. Closed C4 fracture 5. C5 vertebral fracture 6. T1 vertebral fracture 7. T2 vertebral fracture 8. T3 vertebral fracture 9. Dislocation of C4/C5 cervical vertebrae, initial encounter 10. Central cord syndrome at C5 level of cervical spinal cord 11. 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 Attending MD Review Statement Attending Statement Attending MD Statement: examined this patient, discuss w/resident/PA/TECHNICAL SPECIALIST [employer], agreed w/resident/PA/TECHN[employer]IST [employer], discussed with family, reviewed EMR data (avail), discussed w/ nursing, reviewed images Attending Assessment/Plan: See above Assessment/Plan Section (completed by consulting orthopaedic spine surgery attending, Eitan Valenzuela M.D.).
== END 2016-08-22 21:00 | disposition short-term general hospital (02) | DRG 552 ==
LOC: ENRESERVDT → ENRESERVTM → ERH 10:29 → ERHI 14:24
PROVIDERS: Physician Assistant; ADMIT Internal Medicine
DX: S12.400A Unspecified displaced fracture of fifth cervical vertebra, initial encounter for closed fracture (principal); N17.9 Acute kidney failure, unspecified; I24.8 Other forms of acute ischemic heart disease; S22.029A Unspecified fracture of second thoracic vertebra, initial encounter for closed fracture; S22.039A Unspecified fracture of third thoracic vertebra, initial encounter for closed fracture; E86.0 Dehydration; G95.20 Unspecified cord compression; I10 Essential (primary) hypertension; E78.5 Hyperlipidemia, unspecified; Z85.3 Personal history of malignant neoplasm of breast; E87.6 Hypokalemia; Z87.891 Personal history of nicotine dependence; W19.XXXA Unspecified fall, initial encounter; Z91.81 History of falling; Y92.009 Unspecified place in unspecified non-institutional (private) residence as the place of occurrence of the external cause; T79.6XXA Traumatic ischemia of muscle, initial encounter
CPT/HCPCS: ERO; 80307; 81001; 82436; 87040; 87086; 93005; 93010; 96361; 96374; 96375; 99291; G0480; J0696; J7042